=== PATIENT | male | born 1935 | race Caucasian/White ===

== ENCOUNTER → 2016-07-11 | Outpatient (CLI) | payer OTHER, MEDICARE ==
--- NOTE | 2016-07-11 13:43 | CT ---
CT Chest, Abdomen And Pelvis Without Contrast Indication: Elevated creatinine, diarrhea, constipation, right upper back pain, nonsmoker with no can cer history.. Comparison: CT chest April 04, 2014, CT abdomen and pelvis May 01, 2013. Technique: Axial unenhanced CT imaging was performed through the chest, abdomen and pelvis without c ontrast. Dose reduction techniques were utilized. Findings: CHEST: There is mild peribronchial thickening with scattered atelectasis. Heart size is normal. Dual lead right subclavian pacemaker leads are in the right atrium and ventricle. Mitral annular calcifica tions are present. Coronary artery atherosclerosis is noted in the LAD. There is stable mild aneurysm al dilatation of the ascending aorta, measuring 4.2 cm, with moderate aortic atherosclerosis. No path ologically enlarged lymph nodes are identified. Degenerative change is present in the spine. Abdomen: The imaged noncontrast portions of the liver, spleen, gallbladder, pancreas and adrenal gl ands are unremarkable. A 2-mm nonobstructing stone is present in the inferior left kidney. Lobulated renal contour is grossly stable with scattered areas of cortical thinning. Moderate stool is present in the proximal colon. The colon and small bowel are normal caliber. The ap pendix is not visible. There is no free air or fluid. A tiny fat-containing periumbilical hernia is p resent. Moderate atherosclerosis is present in a normal caliber aorta. Severe multilevel degenerative change in the lumbar spine is slightly increased since the comparison, with multilevel mild to moderate spinal canal narrowing. Pelvis: No bladder or distal ureteral calcifications are identified. Mild bladder wall thickening m ay be related to underdistention or bladder outlet obstruction. The prostate is enlarged, measuring 5 .8 cm. No pathologically enlarged lymph nodes are identified. A small fat-containing left inguinal he rnia is stable. No aggressive osseous lesions are present. Impression: 1. No acute findings in the chest, abdomen or pelvis. 2. Mild stool in the proximal colon. 3. Nonobstructing left nephrolithiasis. 4. 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 5. Prostatic hypertrophy. 6. Additional findings as above. Findings discussed with Dr. Femi Blackburn today at 1333 hours. Attention: This CT examination is specifically designed to evaluate patients who are clinically susp ected of having acute obstructive uropathy. This examination does not use radiographic contrast, and as such, provides only a limited evaluation of the abdomen, pelvis and retroperitoneum. If there i s further clinical suspicion for pathological conditions other than obstructive uropathy, a complete CT evaluation of the abdomen and pelvis utilizing intravenous, oral, and rectal contrast should be co nsidered.
== END ==
LOC: FIMAGING 12:10
PROVIDERS: ATTEND Family Medicine Sports Medicine
DX: R63.4 Abnormal weight loss (principal); R89.9 Unspecified abnormal finding in specimens from other organs, systems and tissues; N20.0 Calculus of kidney; N40.0 Benign prostatic hyperplasia without lower urinary tract symptoms; M51.36 Other intervertebral disc degeneration, lumbar region

== ENCOUNTER 2016-07-13 15:12 | Inpatient (IN) | payer OTHER, MEDICARE ==
--- NOTE | 2016-07-13 15:25 | EDPHY ---
H & P Stated Complaint: diarrhea for 3 wks kidney/back pain Time Seen by Provider: 07/13/16 15:24 HPI/ROS: CHIEF COMPLAINT: Dyspnea, diarrhea, generalized weakness HISTORY OF PRESENT ILLNESS: The patient presents to the ED for evaluation of 2- 3 days of dyspnea, 3-4 weeks of intermittent diarrhea and increasing generalized weakness. The patient does have a history of a pacemaker. He is not anticoagulated. He has no history of coronary artery disease but does have a history of obstructive sleep apnea. The patient denies recent antibiotic use. The patient denies acute pain. He has no complaints of dysuria or cough. He describes his dyspnea is moderate in nature. He reportedly has had a 20 lb weight loss over the past month. The patient did see his primary care provider Dr. Femi Blackburn 2 days ago. The patient did have some laboratory studies which demonstrated a slightly elevated creatinine of 2.1. The patient also had a CT scan of his chest abdomen pelvis without contrast which were unremarkable. REVIEW OF SYSTEMS: A comprehensive 10 point review of systems is otherwise negative aside from elements mentioned in the history of present illness. Source: Patient Exam Limitations: No limitations - Personal History Current Tetanus/Diphtheria Vaccine: Yes Current Tetanus Diphtheria and Acellular Pertussis (TDAP): Yes - Medical/Surgical History Hx Asthma: No Hx Chronic Respiratory Disease: Yes Hx Diabetes: No Hx Cardiac Disease: Yes Hx Renal Disease: No Hx Cirrhosis: No Hx Alcoholism: No Hx HIV/AIDS: No Hx Splenectomy or Spleen Trauma: No Other PMH: HTN, hypoxemia, aortic valve disorder, mitral valve regurgitation, Mobitz 1 & 2 heart block. surg- pacemaker 03/31,back and neck testicle - Social History Smoking Status: Never smoked - Physical Exam Exam: General Appearance: Elderly male, obese, slightly deconditioned Eyes: Pupils equal and round no pallor or injection ENT, Mouth: Mucous membranes moist Respiratory: There are no retractions, lungs are clear to auscultation Cardiovascular: Regular rate and rhythm Gastrointestinal: Abdomen is soft and nontender, no masses, bowel sounds normal Neurological: A&O, normal motor function, normal sensory exam, normal cranial nerves Skin: Warm and dry, no rashes Musculoskeletal: Neck is supple nontender Extremities: Bilateral lower extremity edema and swelling Constitutional: Initial Vital Signs Temperature (C) 36.1 C 07/13/16 15:14 Heart Rate 58 L 07/13/16 15:14 Respiratory Rate 16 07/13/16 15:14 Blood Pressure 71/50 L 07/13/16 15:14 O2 Sat (%) 96 07/13/16 15:14 O2 Delivery Mode Nasal Cannula O2 (L/minute) 2 Allergies/Adverse Reactions: acetaminophen [From Percocet] Allergy (Verified 12/20/15 12:23) oxycodone Allergy (Verified 12/20/15 12:23) oxycodone HCl [From Percocet] Allergy (Verified 12/20/15 12:23) Home Medications: Medication Instructions Recorded Ascorbic Acid [Vitamin C 500 mg 1,000 mg PO HS 02/17/14 (*)] Aspirin [Aspirin 81mg (*)] 81 mg PO HS 02/17/14 Fluticasone Nasal [Flonase Nasal 1 sprays NASAL BID PRN 02/17/14 [place]] Glucosamine Sulfate 2Kcl 1,000 mg PO BID 02/17/14 [Glucosamine] Guaifenesin/Codeine Phosphate 5 ml PO Q4 PRN 02/17/14 [Codeine-Guaifen 10-100 mg/5 ml] Herbals/Supplements -Info Only 1 ea PO DAILY 02/17/14 Hydrochlorothiazide [HCTZ (*)] 25 mg PO DAILY 02/17/14 Irbesartan/Hydrochlorothiazide 1 each PO HS 02/17/14 [Avalide 300-12.5 mg Tablet] Methimazole [Tapazole 5MG (*)] 5 mg PO DAILY 02/17/14 Multivitamins [Multivitamin (*)] 1 each PO HS 02/17/14 NIFEdipine ER [Adalat CC 60 mg (*)] 60 mg PO DAILY 02/17/14 Tadalafil [Cialis] 5 mg PO HS PRN 02/17/14 Hydrocodone/Acetaminophen [Vicodin 1 each PO Q4-6PRN PRN #14 tablet 02/18/14 5-300 mg Tablet] Advair 250/50 (RX) 05/30/14 Albuterol [Proventil Inhaler] 2 puffs IH Q4 PRN #1 mdi 05/30/14 Amoxicillin/Clavulanate Pot 05/30/14 [Augmentin 875 MG TAB (RX)] Foradil Aerolization 05/30/14 HYDROcodone/CPM TUSSIONEX 5 ml PO Q12 #240 ml 05/30/14 [Tussionex Suspension] Lasix 40 MG (RX) 05/30/14 Potassium Chloride [K-Tab ER] 05/30/14 Prilosec 05/30/14 AZITHROMYCIN [Z-PACK] 250 mg PO DAILY #6 tab 12/20/15 HYDROcodone/CPM TUSSIONEX 5 ml PO Q12 #240 ml 12/20/15 [Tussionex Suspension] Hydrocodone/APAP 5/325 [[place] 1 tab PO Q6H PRN #10 tab 12/20/15 5/325 (RX)] Medical Decision Making - Diagnostics EKG Interpretation: EKG: Complete interpretation has been separately recorded in the [facility] archive. Summary impression: Atrial paced rhythm, left bundle branch block Imaging: Chest, PA and Lateral Findings: Lungs are clear, without infiltrate or consolidation. Heart size and pulmonary vascularity are normal. A left chest wall pacer device with bipolar pacer leads remains in place. There is chronic atherosclerotic calcification of the thoracic aorta. There is no adenopathy or mass lesion. There is no pleural effusion or pneumothorax. A prominent kyphosis centered at the thoracolumbar junction associated with calcification of the T10-T11 disk space and old mild compressions of T10, T11, T12 and L1 are stable. No new compressions have developed. Impression: Nothing acute identified. ED Course/Re-evaluation: I reviewed the patient's past medical records including his CT scan results from several days ago and his laboratory testing which demonstrated a creatinine of 2.1. In the emergency department today the patient's creatinine is elevated at 3.2. He had an IV established. He received 2 L of normal saline. Patient's bladder scan demonstrates a urinary volume of 100 mL. The patient presents to the ED with malaise, dyspnea and acute renal failure in the setting of 3 days of diarrhea. The patient did initially have a low blood pressure which responded to IV fluid rehydration. The patient is afebrile. There is no clinical evidence of an infection. The patient does present to the ED with acute renal failure without hyperkalemia. Patient did receive IV fluid rehydration in the ED. He had improvement of his blood pressure. I reviewed the patient's medications in the [facility] system. The patient is currently on hydrochlorothiazide, Lasix and Avalide. Consultation was made with Dr. Miguel Pierce from the hospitalist service. The patient will need to be admitted for further treatment of his acute renal failure. Differential Diagnosis: Differential diagnosis considered includes acute renal failure, hyperkalemia, congestive heart failure, metabolic abnormality, pneumonia, arrhythmia - Data Points Laboratory Results: Laboratory Results 07/13/16 15:36 07/13/16 15:36 07/13/16 15:36 WBC 9.88 H 10^3/uL (3.80-9.50) RBC 4.94 10^6/uL (4.40-6.38) Hgb 15.1 g/dL (13.7-17.5) Hct 43.5 % (40.0-51.0) MCV 88.1 fL (81.5-99.8) MCH 30.6 pg (27.9-34.1) MCHC 34.7 g/dL (32.4-36.7) RDW 11.9 % (11.5-15.2) Plt Count 212 10^3/uL (150-400) MPV 10.6 fL (8.7-11.7) Neut % (Auto) 73.4 % (39.3-74.2) Lymph % (Auto) 17.3 % (15.0-45.0) [place] % (Auto) 7.6 % (4.5-13.0) Eos % (Auto) 0.8 % (0.6-7.6) Baso % (Auto) 0.3 % (0.3-1.7) Nucleat RBC Rel Count 0.0 % (0.0-0.2) Absolute Neuts (auto) 7.25 H 10^3/uL (1.70-6.50) Absolute Lymphs (auto) 1.71 10^3/uL (1.00-3.00) Absolute Monos (auto) 0.75 10^3/uL (0.30-0.80) Absolute Eos (auto) 0.08 10^3/uL (0.03-0.40) Absolute Basos (auto) 0.03 10^3/uL (0.02-0.10) Absolute Nucleated RBC 0.00 10^3/uL (0-0.01) Immature Gran % 0.6 % (0.0-1.1) Immature Gran # 0.06 10^3/uL (0.00-0.10) PT 13.8 SEC (12.0-15.0) INR 1.07 (0.83-1.16) D-Dimer 0.43 ug/mLFEU (0.00-0.50) Sodium 137 mEq/L (134-144) Potassium 4.1 mEq/L (3.5-5.2) Chloride 97 mEq/L (97-110) Carbon Dioxide 24 mEq/l (22-31) Anion Gap 16 mEq/L (8-16) BUN 75 H mg/dL (7-23) Creatinine 3.2 H mg/dL (0.7-1.3) Estimated GFR 19 Glucose 113 H mg/dL (70-100) Calcium 10.7 H mg/dL (8.5-10.4) Phosphorus 4.1 mg/dL (2.5-4.5) Troponin I 0.021 ng/mL (0-0.034) NT-Pro-B Natriuret Pep 711 H pg/mL (0-450) Medications Given: Discontinued Medications Sodium Chloride (Ns) 1,000 mls @ 0 mls/hr IV ONCE ONE PRN Reason: [place] Stop: 07/13/16 15:32 Last Admin: 07/13/16 15:40 Dose: 1,000 mls Departure - Departure Disposition: [facility] Inpatient Acute Clinical Impression: Acute renal failure, Hypovolemia Condition: Fair
[2016-07-13] MEDS ORDERED: NS 1,000 ML IV ONE (15:31)
--- NOTE | 2016-07-13 15:35 | CPEKG ---
Heart Rate: 67 RR Interval: 896 QRSD Interval: 164 QT Interval: 464 QTC Interval: 490 P [place]: 0 QRS [place]: -22 T Wave [place]: 164 EKG Severity - ABNORMAL ECG - EKG Impression: ATRIAL-SENSED VENTRICULAR-PACED COMPLEXES EKG Impression: LEFT BUNDLE BRANCH BLOCK Electronically Signed By: Jadiel Moss 13-Jul-2016 15:45:59
[2016-07-13 15:41] LABS: % IMMATURE GRANULYOCYTES 0.6 % (0.0-1.1); ABSOLUTE IMMATURE GRANULOCYTES 0.06 10^3/uL (0.00-0.10); ADD DIFF? NO; ADD MORPH? NO; ADD SCAN? NO; ATYPICAL LYMPHOCYTE FLAG 20 (0-99); FRAGMENT RBC FLAG 10 (0-99); HEMATOCRIT 43.5 % (40.0-51.0); HEMOGLOBIN 15.1 g/dL (13.7-17.5); LEFT SHIFT FLG 0 (0-99); LIPEMIA HEMOLYSIS FLAG 90 (0-99); MEAN CELL HEMOGLOBIN 30.6 pg (27.9-34.1); MEAN CELL HEMOGLOBIN CONCENTR. 34.7 g/dL (32.4-36.7); MEAN CELL VOLUME 88.1 fL (81.5-99.8); MEAN PLATELET VOLUME 10.6 fL (8.7-11.7); PLATELET CLUMPS FLAG 0 (0-99); PLATELET COUNT 212 10^3/uL (150-400); RED BLOOD CELL COUNT 4.94 10^6/uL (4.40-6.38); RED CELL DISTRIBUTION WIDTH 11.9 % (11.5-15.2)
[2016-07-13 15:49] LABS: INR 1.07 (0.83-1.16); PROTIME(PATIENT) 13.8 SEC (12.0-15.0)
[2016-07-13 15:54] LABS: ANION GAP 16 mEq/L (8-16); CALCIUM 10.7 mg/dL (8.5-10.4); CARBON DIOXIDE 24 mEq/l (22-31); CHLORIDE 97 mEq/L (97-110); CREATININE 3.2 mg/dL (0.7-1.3); GLOMERULAR FILTRATION RATE 19; GLUCOSE 113 mg/dL (70-100); POTASSIUM 4.1 mEq/L (3.5-5.2); SODIUM 137 mEq/L (134-144)
[2016-07-13 16:05] LABS: TROPONIN I 0.021 ng/mL (0-0.034)
--- NOTE | 2016-07-13 16:26 | DX ---
Chest, PA and Lateral History: Dyspnea Comparison: December 20, 2015 Findings: Lungs are clear, without infiltrate or consolidation. Heart size and pulmonary vascularity are normal. A left chest wall pacer device with bipolar pacer leads remains in place. There is chroni c atherosclerotic calcification of the thoracic aorta. There is no adenopathy or mass lesion. There i s no pleural effusion or pneumothorax. A prominent kyphosis centered at the thoracolumbar junction as sociated with calcification of the T10-T11 disk space and old mild compressions of T10, T11, T12 and L1 are stable. No new compressions have developed. Impression: Nothing acute identified.
[2016-07-13] MEDS ORDERED: ONDANSETRON 4 MG/2 ML VIAL IVP PRN (18:29)
[2016-07-13] MEDS ORDERED: ONDANSETRON HCL 4 MG PO PRN (18:35)
--- NOTE | 2016-07-13 18:42 | PDGENHP ---
History and Physical - Chief Complaint Acute shortness of breath - History of Present Illness PCP: Dr. Blackburn Apn: Dr. Payne HPI: 81-year-old male presenting with acute shortness of breath characterized as difficulty breathing and getting winded with any level of activity, associated with generalized weakness, general malaise, diarrhea, anorexia, unintentional weight loss. Patient reports that his onset of symptoms approximately 3-4 weeks ago and duration has been intermittent but worsening thereafter. His oral intake of solids and liquids has been poor secondary to poor appetite, and this has resulted in an unintentional weight loss. Was seen by his primary care provider to further evaluate and his creatinine level was around 2.5. He underwent CTs without contrast of the chest abdomen pelvis and he has demonstrated stool in the colon, nonobstructing left-sided nephrolithiasis, BPH, no evidence of pulmonary abnormality. His shortness of breath is exacerbated by any level of activity, notably getting up out of the supine position and ambulating across the room. He reports that he this level physical activity has resulted in significant shortness of breath. Denies any overt chest pain, denies any oliguria, denies any overt vomiting. His diarrhea has been characterized as nonbloody, high volume watery stool, and it appears to be alleviated by reducing his oral intake of solids. During this interval, the patient has been adherent to all of his home medications. History Information - Allergies/Home Medication List Allergies/Adverse Reactions: acetaminophen [From Percocet] Allergy (Verified 12/20/15 12:23) oxycodone Allergy (Verified 12/20/15 12:23) oxycodone HCl [From Percocet] Allergy (Verified 12/20/15 12:23) Home Medications: Ascorbic Acid [Vitamin C 500 mg (*)] 1,000 mg PO HS 02/17/14 [Last Taken ] Aspirin [Aspirin 81mg (*)] 81 mg PO HS 02/17/14 [Last Taken 07/13/16 01:00] Glucosamine Sulfate 2Kcl [Glucosamine] 1,000 mg PO BID 02/17/14 [Last Taken ] Herbals/Supplements -Info Only 1 ea PO DAILY 02/17/14 [Last Taken 02/17/14] Hydrochlorothiazide [HCTZ (*)] 25 mg PO DAILY 02/17/14 [Last Taken 07/13/16] Irbesartan/Hydrochlorothiazide [Avalide 300-12.5 mg Tablet] 1 each PO HS [Last Taken 07/12/16] Methimazole [Tapazole 5MG (*)] 5 mg PO DAILY 02/17/14 [Last Taken 07/13/16] Multivitamins [Multivitamin (*)] 1 each PO HS 02/17/14 [Last Taken 07/12/16] Tadalafil [Cialis] 5 mg PO HS PRN 02/17/14 [Last Taken Unknown] Azelastine HCl [Azelastine HCl] 1 spray EACHNARE DAILY 07/13/16 [Last Taken ] Fluticasone/Salmeter 250/50Mcg [Advair 250/50 (*)] 1 puffs IH BID 07/13/16 [ Last Taken 06/29/16] Furosemide [Furosemide] 40 mg PO DAILY 07/13/16 [Last Taken 07/13/16] Montelukast Sodium [Montelukast Sodium] 10 mg PO DAILY 07/13/16 [Last Taken ] Ondansetron HCl [Ondansetron HCl] 4 mg PO DAILY PRN 07/13/16 [Last Taken ] Potassium Chloride [Klor-Con M20] 20 meq PO BID 07/13/16 [Last Taken 07/13/16 08 :00] TRAMADOL HCL [TRAMADOL HCL] 100 mg PO DAILY 07/13/16 [Last Taken 07/13/16] I have personally reviewed and updated: family history, medical history, social history, surgical history - Past Medical History hypertension Additional medical history: Chronic lower back pain on tramadol. Moderate aortic stenosis. Nocturnal hypoxia. 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 Review of Systems ROS: 10pt was reviewed & negative except for what was stated in HPI & below Constitutional: Reports: malaise, weakness, weight loss Respiratory: Reports: shortness of breath Physical Exam Temp Pulse Resp BP Pulse Ox 36.4 C 81 18 83/51 L 96 07/13/16 18:21 07/13/16 18:21 07/13/16 18:21 07/13/16 18:21 07/13/16 17:21 O2 (L/minute) 2 Constitutional: no apparent distress, not in pain, obese, uncomfortable Eyes: PERRL, anicteric sclera, EOMI Ears, Nose, Mouth, Throat: hearing normal, ears appear normal, other ( tacky mucous membranes) Cardiovascular: systolic murmur ( 2/6 systolic murmur at the sternum), edema ( trace bilateral lower extremity), No irregularly irregular, No JVD, No tachycardia Respiratory: no respiratory distress, no rales or rhonchi, clear to auscultation Gastrointestinal: normoactive bowel sounds, soft, non-tender abdomen, no palpable masses Genitourinary: no bladder fullness, no bladder tenderness, other ( no CVA tenderness to palpation) Skin: warm, normal color, no rashes or abrasions, no fluctuance, no induration, No mottled Neurologic: AAOx3, sensation intact bilaterally, No weakness Psychiatric: interacting appropriately, not anxious, not encephalopathic, thought process linear Lab Data & Imaging Review 07/13/16 15:36 07/13/16 15:36 WBC 9.88 10^3/uL (3.80-9.50) H 07/13/16 15:36 RBC 4.94 10^6/uL (4.40-6.38) 07/13/16 15:36 Hgb 15.1 g/dL (13.7-17.5) 07/13/16 15:36 Hct 43.5 % (40.0-51.0) 07/13/16 15:36 MCV 88.1 fL (81.5-99.8) 07/13/16 15:36 MCH 30.6 pg (27.9-34.1) 07/13/16 15:36 MCHC 34.7 g/dL (32.4-36.7) 07/13/16 15:36 RDW 11.9 % (11.5-15.2) 07/13/16 15:36 Plt Count 212 10^3/uL (150-400) 07/13/16 15:36 MPV 10.6 fL (8.7-11.7) 07/13/16 15:36 Neut % (Auto) 73.4 % (39.3-74.2) 07/13/16 15:36 Lymph % (Auto) 17.3 % (15.0-45.0) 07/13/16 15:36 [place] % (Auto) 7.6 % (4.5-13.0) 07/13/16 15:36 Eos % (Auto) 0.8 % (0.6-7.6) 07/13/16 15:36 Baso % (Auto) 0.3 % (0.3-1.7) 07/13/16 15:36 Nucleat RBC Rel Count 0.0 % (0.0-0.2) 07/13/16 15:36 Absolute Neuts (auto) 7.25 10^3/uL (1.70-6.50) H 07/13/16 15:36 Absolute Lymphs (auto) 1.71 10^3/uL (1.00-3.00) 07/13/16 15:36 Absolute Monos (auto) 0.75 10^3/uL (0.30-0.80) 07/13/16 15:36 Absolute Eos (auto) 0.08 10^3/uL (0.03-0.40) 07/13/16 15:36 Absolute Basos (auto) 0.03 10^3/uL (0.02-0.10) 07/13/16 15:36 Absolute Nucleated RBC 0.00 10^3/uL (0-0.01) 07/13/16 15:36 Immature Gran % 0.6 % (0.0-1.1) 07/13/16 15:36 Immature Gran # 0.06 10^3/uL (0.00-0.10) 07/13/16 15:36 PT 13.8 SEC (12.0-15.0) 07/13/16 15:36 INR 1.07 (0.83-1.16) 07/13/16 15:36 D-Dimer 0.43 ug/mLFEU (0.00-0.50) 07/13/16 15:36 Sodium 137 mEq/L (134-144) 07/13/16 15:36 Potassium 4.1 mEq/L (3.5-5.2) 07/13/16 15:36 Chloride 97 mEq/L (97-110) 07/13/16 15:36 Carbon Dioxide 24 mEq/l (22-31) 07/13/16 15:36 Anion Gap 16 mEq/L (8-16) 07/13/16 15:36 BUN 75 mg/dL (7-23) H 07/13/16 15:36 Creatinine 3.2 mg/dL (0.7-1.3) H 07/13/16 15:36 Estimated GFR 19 07/13/16 15:36 Glucose 113 mg/dL (70-100) H 07/13/16 15:36 Calcium 10.7 mg/dL (8.5-10.4) H 07/13/16 15:36 Phosphorus 4.1 mg/dL (2.5-4.5) 07/13/16 15:36 Troponin I 0.021 ng/mL (0-0.034) 07/13/16 15:36 NT-Pro-B Natriuret Pep 711 pg/mL (0-450) H 07/13/16 15:36 Visualized and Interpreted Chest x-ray results: Yes Chest X-Ray results: no infiltrate Visualized and Interpreted EKG results: Yes EKG Interpretation: Positive for: other ( a sensed, V paced, left bundle branch block) Assessment & Plan Assessment: 81-year-old male presents with acute shortness of breath in the setting of acute kidney injury Plan: 1. Acute kidney injury. Acute, new problem this provider, further workup indicated. Non-oliguric, progressively rising serum creatinine level over the past week, most likely resulting in uremia and at least contributing to patient' s generalized malaise. -unclear cause, suspect that there is at least component of hypovolemia given his poor oral intake and diarrhea, exacerbated by ongoing use of ARB+lasix+HCTZ -send fractional excretion of urea -send urinalysis, send spot urine protein -provide IV normal saline at 150 cc an hour, monitor strict I&Os, repeat serum creatinine level tomorrow a.m. -get renal ultrasound to rule out obstruction -if patient's serum creatinine level is worsening tomorrow or not appreciably improved, then consult with Nephrology 2. Shortness of breath. Acute, new problem this provider, further workup indicated. Potential etiologies include uremia versus myocardial ischemia versus cardiomyopathy -get echocardiogram -get Lexiscan stress test -reviewed outside records including nuclear medicine stress test from 2013 demonstrating no previous infarct or ischemia -reviewed outside records including 03/17/2014 discharge summary by kenroy Gonzalez reporting a patient second-degree AV block requiring permanent pacemaker -hold on cardiology consultation until the above data has been gathered and consult if there are abnormalities -D-dimer rule out pulmonary embolism -no evidence of focal airspace disease on chest x-ray or recent chest CT -get orthostatic vital signs given that hypotension may be contributing to shortness of breath 3. Hypotension. Acute, most likely secondary to hypovolemia in the setting of poor oral intake and diarrhea -monitor patient's stool output -discussed with Dr. Jadiel Moss in the emergency department, he reports he has provided the patient with IV fluids, continued 150 cc an hour -hold patient's antihypertensive medications -if worsening, send lactic acid level 4. Chronic lower back pain. Cont tramadol Diet. Renal Prophylaxis. High risk patient, heparin subcu Code. Full Disposition. Anticipated discharge is uncertain this time, anticipated length stay is greater than 48 hours warranting inpatient admission status for acute kidney injury in the setting of high risk comorbid acute shortness of breath and hypotension requiring further workup and placing the patient at high risk of worsening morbidity and potentially mortality.
--- NOTE | 2016-07-13 19:51 | US ---
Renal Sonogram Clinical Indications: Worsening renal function in an 81-year-old male; evaluate for obstruction. Findings: The right kidney measures 10.2 x 5.0 x 5.6 cm. Renal cortical thickness is estimated at 1. 0 cm. No masses are identified, and there is no hydronephrosis. There are no pararenal lesions. The left kidney measures 10.0 x 4.6 x 4.0 cm. Renal cortical thickness is estimated at 1.5 cm. No mas ses are identified, and there is no hydronephrosis. There are no pararenal lesions. The bladder contour is normal. Bilateral ureteral jets are identified. The prevoid bladder volume is estimated at 37 mL. The patient was unable to void so a post void volum e could not be calculated. The prostate is enlarged measuring 6.2 x 4.8 x 5.0 cm. Impression: 1. Negative for hydronephrosis. 2. Prostatic enlargement. 3. See above report for additional findings.
[2016-07-13] MEDS: NS 1,000 ML IV SCH (20:02)
[2016-07-13] MEDS ORDERED: ALBUTEROL 60 PUFFS/8 GM MDI IH PRN (20:49)
[2016-07-13] MEDS: MULTIVITAMINS 1 EACH TAB PO SCH (20:57)
[2016-07-13] MEDS: GLUCOSAMINE SULF 500 MG CAP PO SCH (20:57)
[2016-07-13] MEDS: ASCORBIC ACID 500 MG TAB PO SCH (20:57)
[2016-07-13] MEDS: ASPIRIN 81 MG CHEWABLE TAB PO SCH (20:57)
[2016-07-13] MEDS: HEPARIN 5,000 UNIT/0.5 ML SYR SC SCH (21:03)
[2016-07-13] MEDS: FLUTICASONE/SALMETER 250/50MCG DISKUS IH SCH (21:16)
[2016-07-13 21:29] LABS: COLOR YELLOW; LEUKOCYTE ESTERASE,URINE NEGATIVE (NEGATIVE); NITRITE,URINE NEGATIVE (NEGATIVE)
[2016-07-14 04:56] LABS: % IMMATURE GRANULYOCYTES 0.5 % (0.0-1.1); ABSOLUTE IMMATURE GRANULOCYTES 0.04 10^3/uL (0.00-0.10); ADD DIFF? NO; ADD MORPH? NO; ADD SCAN? NO; ATYPICAL LYMPHOCYTE FLAG 0 (0-99); FRAGMENT RBC FLAG 0 (0-99); HEMATOCRIT 40.9 % (40.0-51.0); HEMOGLOBIN 14.2 g/dL (13.7-17.5); LEFT SHIFT FLG 0 (0-99); LIPEMIA HEMOLYSIS FLAG 90 (0-99); MEAN CELL HEMOGLOBIN 31.3 pg (27.9-34.1); MEAN CELL HEMOGLOBIN CONCENTR. 34.7 g/dL (32.4-36.7); MEAN CELL VOLUME 90.1 fL (81.5-99.8); MEAN PLATELET VOLUME 10.6 fL (8.7-11.7); PLATELET CLUMPS FLAG 0 (0-99); PLATELET COUNT 154 10^3/uL (150-400); RED BLOOD CELL COUNT 4.54 10^6/uL (4.40-6.38); RED CELL DISTRIBUTION WIDTH 11.9 % (11.5-15.2)
[2016-07-14 05:05] LABS: ALANINE AMINOTRANSFERASE 33 IU/L (21-72); ALBUMIN 3.7 g/dL (3.5-5.0); ALKALINE PHOSPHATASE 75 IU/L (38-126); ANION GAP 10 mEq/L (8-16); ASPARTATE AMINOTRANSFERASE 27 IU/L (17-59); BILIRUBIN,TOTAL 1.6 mg/dL (0.1-1.4); CALCIUM 10.1 mg/dL (8.5-10.4); CARBON DIOXIDE 24 mEq/l (22-31); CHLORIDE 104 mEq/L (97-110); CREATININE 2.6 mg/dL (0.7-1.3); GLOMERULAR FILTRATION RATE 24; GLUCOSE 96 mg/dL (70-100); MAGNESIUM 2.2 mg/dL (1.6-2.3); POTASSIUM 4.9 mEq/L (3.5-5.2); SODIUM 138 mEq/L (134-144); TOTAL PROTEIN 6.3 g/dL (6.3-8.2)
[2016-07-14 05:14] LABS: TROPONIN I 0.019 ng/mL (0-0.034)
[2016-07-14] MEDS: HEPARIN 5,000 UNIT/0.5 ML SYR SC SCH ×3 (06:04→22:14)
[2016-07-14] MEDS: traMADol 50 MG TAB PO SCH ×2 (08:19→14:42)
[2016-07-14] MEDS: GLUCOSAMINE SULF 500 MG CAP PO SCH ×2 (08:19→22:14)
[2016-07-14] MEDS: AZELASTINE NASAL MDI EACHNARE SCH (08:21)
[2016-07-14] MEDS ORDERED: PNEUMOC 13-VAL CONJ-DIP CRM/PF 0.5 ML SYR IM ONE (08:30)
[2016-07-14] MEDS ORDERED: Herbals/Supplements -Info Only PO SCH (09:00)
[2016-07-14] MEDS ORDERED: METHIMAZOLE 5 MG TAB PO SCH (09:00)
[2016-07-14] MEDS: NS 1,000 ML IV SCH (10:35)
--- NOTE | 2016-07-14 10:44 | ECHO ---
[id number] + + [address] : : [place] [address] : : [phone] + + Adult Echocardiographic Report + ------+ :Name: MELLO FOUNTAINjonnathanmilton Date: 07/14/2016 08:24 AM : : Hospital Admission Number: [id number] Locatio n: 218: :: 1935 Gender: Male Height: 73 in : :Age: 81 yrs Race: WH,White Weight: 201 lb : :Reason For Study: Eval for worsening EF : : BSA: 2.2 meters 2 : + ------+ MMode/2D Measurements & Calculations IVSd: 1.5 cm LVIDd: 3.6 cm FS: 33.4 % LVOT diam: 1.9 cm LVPWd: 1.4 cm LVIDs: 2.4 cm EDV(Teich): LVOT area: 56.0 ml 2.9 cm2 ESV(Teich): 20.7 ml EF(Teich): 63.0 % LVLd ap4: 9.2 cm SV(MOD-sp4): EDV(MOD-sp4): 101.0 ml 147.0 ml LVLs ap4: 7.8 cm ESV(MOD-sp4): 46.0 ml EF(MOD-sp4): 68.7 % Normal Measurement Values: + + :LVIDd (3.5-5.7cm) IVSd (0.6-1.1cm) LVPWd (0.6-1.1cm) Aortic Root (2.0-3.7cm)Left Atrium (1.5-4.0cm): :LV Vol(d) (76-115ml) LV Vol(s) (29-48ml) Ejec Fraction (50-65%)PV Aaron (0.6- 1.2m/s) TV Aaron (0.4-1.0m/s) : :MV E Aaron (0.8-1.0m/s)MV A Aaron (0.3-1.0m/s)LVOT Aaron (0.7-1.2m/s) Asc Ao Aaron ( 0.9-1.8m/s) : + + Doppler Measurements & Calculations MV E max aaron: MV V2 max: Ao V2 max: AI max aaron: 94.3 cm/sec 152.2 cm/sec 237.8 cm/sec 304.1 cm/sec MV A max aaron: MV max PG: Ao max PG: AI max P.7 cm/sec 9.3 mmHg 22.6 mmHg 37.0 mmHg MV E/A: 0.67 MV V2 mean: Ao mean PG: AI dec slope: MV dec time: 94.0 cm/sec 17.2 mmHg 71.6 cm/sec2 0.36 sec MV mean PG: Ao V2 mean: AI P1/2t: 1245 msec 3.9 mmHg 197.3 cm/sec MV V2 VTI: 51.3 cmAo V2 VTI: 57.0 cm MVA(VTI): 1.8 cm2 DELANO(I,D): 1.7 cm2 LV V1 mean PG: SV(LVOT): 94.5 ml PA V2 max: TR max aaron: 4.1 mmHg 100.8 cm/sec 339.3 cm/sec LV V1 mean: PA max PG: TR max P.0 cm/sec 4.1 mmHg 46.1 mmHg LV V1 VTI: 32.4 cm Left Ventricle The left ventricle is normal in size. There is mild to moderate concentric left ventricular hypertrophy. Proximal septal thickening is noted. Ejection Fraction = 65-70%. There is Doppler evidence for diastolic dysfunction. Septal motion is consistent with conduction abnormality. Right Ventricle The right ventricle is normal in size and function. There is a pacemaker lead in the right ventricle. Atria The left atrial size is normal. Right atrial size is normal. Mitral Valve There is mild to moderate mitral annular calcification. There is mild mitral stenosis. There is trace to mild mitral regurgitation. Tricuspid Valve The tricuspid valve is normal in structure and function. There is no tricuspid stenosis. There is moderate tricuspid regurgitation. Estimated PA systolic pressure is 46 mmHg plus RA pressure, consistent with moderate PHTN. Aortic Valve Mild-Moderate Aortic Valve Calcification. Mild valvular aortic stenosis. Mild to moderate aortic regurgitation. Pulmonic Valve The pulmonic valve is not well visualized. There is no pulmonic valvular stenosis. There is no pulmonic valvular regurgitation. Great Vessels The aortic root is normal size. Pericardium/Pleural There is no pericardial effusion. There is a fat pad seen. Conclusion A complete two-dimensional transthoracic echocardiogram was performed (2D, M-mode, Doppler and color flow Doppler). The study was technically difficult. The left ventricle is normal in size. Proximal septal thickening is noted. There is mild to moderate concentric left ventricular hypertrophy. Ejection Fraction = 65-70%. There is Doppler evidence for diastolic dysfunction. Septal motion is consistent with conduction abnormality. The right ventricle is normal in size and function. There is a pacemaker lead in the right ventricle. There is mild to moderate mitral annular calcification. There is trace to mild mitral regurgitation. Mild mitral stenosis There is moderate tricuspid regurgitation. Estimated PA systolic pressure is 46 mmHg plus RA pressure, consistent with moderate PHTN Mild-Moderate Aortic Valve Calcification Mild valvular aortic stenosis. Mild to moderate aortic regurgitation. The pulmonic valve is not well visualized. Compared with 11/21/2012, valvular disease has progressed and PHTN now present Final Reading Physician: Dr Lucero Torres electronically signed on 07/14/2016 10:42 AM Ordering Physician: Lavon Pierce Performed By: Prerna Armstrong
[2016-07-14 11:33] LABS: T3 (TRIIODOTHYRONINE) TOTAL 1.77 ng/mL (0.970-1.690)
[2016-07-14] MEDS: FLUTICASONE/SALMETER 250/50MCG DISKUS IH SCH ×2 (12:27→20:50)
[2016-07-14 13:21] LABS: RANDOM URINE PROTEIN 9 mg/dL
[2016-07-14] MEDS ORDERED: REGADENOSON 0.4 MG/5 ML SYR IVP ONE (13:32)
[2016-07-14] MEDS: MONTELUKAST SODIUM 10 MG TAB PO SCH (14:50)
--- NOTE | 2016-07-14 15:29 | NM ---
Nuclear Medicine Stress and Rest Sestamibi Myocardial Scan 12:46 PM Indication: Dyspnea. Hypertension. Left bundle branch block. Technique: 1. Resting study was performed by injecting 11 mCi of technetium 99m sestamibi (Cardiolite) intraven ously, and SPECT myocardial images were acquired. 2. Stress study was performed by injecting 25.7 mCi of technetium 99m sestamibi following Lexiscan stress. 3. Gated SPECT imaging could not be performed due to abnormal heart rate. Comparison: Stress test dated March 31, 2014. Findings: The raw data reveals mild subdiaphragmatic balance solid organ uptake. SPECT imaging reveal s a large fixed defect involving the inferior wall, inferior septum and inferior aspect of the left v entricular free wall. Gated imaging could not be performed due to abnormal rhythm. Impression: 1. Large age-indeterminate myocardial infarction involving the inferior wall and inferior lateral wal l. 2. Defect involving the inferior septum may be related to patient's left bundle branch block. 3. No evidence of reversible ischemia. 4. Contractility and left ventricular ejection fraction could not be calculated due to arrhythmia. Comment: Results were called to Nate Vizcaino M.D., shortly after study completion.
--- NOTE | 2016-07-14 16:54 | HOSPPROG ---
Hospitalist Progress Note Assessment/Plan: 81 yo M with longstanding hx of difficult to control hyperthyroidism presents s/ p 2 months of poor po intake, diarrhea and weight loss with leonela and sob # leonela: pre renal in the setting of poor po intake, n/v/d and 20-25 pound weight loss, hypotension since arrival. As an OP had been on ARB, lasix, hctz as well likely contributing. Has improved some with IVF overnight, FEurea of 22%. Continue IVF, continue to trend, avoid nephrotoxins. # thyrotoxicosis: with very low tsh and ft4/t3 quite elevated. Has sxs suggestive of overt hyperthyroidism though not clearly in thyroid storm. Will start PTU and lugol solution and monitor. He has been followed by endocrine but reports that they have had issues getting his thyroid under control. Clearly contributing to his presenting issues. # sob: echo and stress test ordered on arrival, stress test with evidence of age indeterminant MN, no chest pain currently, will ask for cardiology to evaluate in am. Echo relatively wnl. # diarrhea/weight loss: in setting of uncontrolled hyperthyroidism, has largely resolved # sacral excoriation: concerning for pressure ulcer, will ask for wound care to evaluate, no clear skin breakdown or cellulitis # dispo: IP status, will need > 48 hours stay for eval/mgmt of above # patient new to my care. Old records reviewed and summarized,further hx obtained from patients present at bedside. Subjective: no significant overnight events, patient is curerntly feeling better , eating, no chest pain Objective: Vital Signs Temp Pulse Resp BP Pulse Ox 36.3 C 89 16 81/46 L 96 07/14/16 10:59 07/14/16 10:59 07/14/16 10:59 07/14/16 10:59 07/14/16 10:59 Laboratory Results 07/14/16 04:41 07/14/16 04:41 07/13/16 07/14/16 07/15/16 05:59 05:59 05:59 Intake Total 2934 1630 Output Total 100 300 Balance 2834 1330 PT 13.8 SEC (12.0-15.0) 07/13/16 15:36 INR 1.07 (0.83-1.16) 07/13/16 15:36 awake alert nad anicteric op clear rrr no mrg cta b soft nt nd no cce warm dry well perfused oriented appropriate - Time Spent With Patient Time Spent with Patient: greater than 35 minutes Time Spent with Patient: Greater than 35 minutes spent on this patients care, greater than 50% of time spent counseling, educating, and coordinating care regarding the above mentioned plan. ICD10 Worksheet Patient Problems: Problems Problem Status Diagnosed Acute renal failure Acute Hypovolemia Acute
[2016-07-14] MEDS: PROPYLTHIOURACIL 50 MG TAB PO SCH ×2 (17:36→22:11)
--- NOTE | 2016-07-14 19:21 | CPR ---
[f rep st] NONINVASIVE CARDIAC PROCEDURE REPORT DATE OF PROCEDURE: 07/14/2016 PROCEDURE: Lexiscan myocardial perfusion imaging injection. INDICATION FOR PROCEDURE: Increased shortness of breath, known history of sick sinus syndrome with v entricular pacer, occasional premature ventricular contraction. PRE: After obtaining informed consent, and ensuring patient's NPO status of caffeine for greater isacc n 12 hours, the patient was placed on electrocardiogram. Initial EKG shows ventricular pace with occ asional unifocal P ventricular contraction. Patient denies any chest pain, shortness of breath, or s ymptoms suggesting of ischemia. Initial blood pressure 100/60, saturating 92%. INJECTION: Patient was given Lexiscan slow IV push followed by a nuclear isotope. Patient reporting post injection of feeling warm, mild increase in shortness of breath. Blood pressure did drop to 90 /50 within 1 minute post injection. Electrocardiogram remain the same, V paced with occasional derek ture ventricular contractions. The patient was given a caffeine beverage. Within 5 minutes, he repo rted all symptoms had subsided. Again, no significant EKG changes, blood pressure did improve, and w ithin 5 minutes a final blood pressure of 102/60, saturating 96%. Patient reported within 5 minutes reporting all symptoms subsided. IMPRESSION: An 81-year-old male admitted for increased shortness of breath, undergoing Lexiscan MPI study for evaluation of cardiac ischemia, mild shortness of breath. Post injection, within 1 minute , improvement, with mild blood pressure drop which improved within 5 minutes. The patient remained V paced with occasional premature ventricular contractions. Vital signs are stable. He will finish p oststress imaging in 3 Nuclear Medicine at this time. /[id number]/MODL
[2016-07-14] MEDS: LIDOCAINE 2% JELLY 5 ML TUBE TP PRN (22:06)
[2016-07-14] MEDS: POTASSIUM IODIDE 30 ML BTL PO SCH (22:07)
[2016-07-14] MEDS: ASCORBIC ACID 500 MG TAB PO SCH (22:13)
[2016-07-14] MEDS: MULTIVITAMINS 1 EACH TAB PO SCH (22:13)
[2016-07-14] MEDS: ASPIRIN 81 MG CHEWABLE TAB PO SCH (22:14)
[2016-07-15] MEDS: PROPYLTHIOURACIL 50 MG TAB PO SCH ×6 (01:15→20:38)
[2016-07-15 04:46] LABS: % IMMATURE GRANULYOCYTES 0.4 % (0.0-1.1); ABSOLUTE IMMATURE GRANULOCYTES 0.02 10^3/uL (0.00-0.10); ADD DIFF? NO; ADD MORPH? NO; ADD SCAN? NO; ATYPICAL LYMPHOCYTE FLAG 10 (0-99); FRAGMENT RBC FLAG 0 (0-99); HEMATOCRIT 35.2 % (40.0-51.0); HEMOGLOBIN 12.4 g/dL (13.7-17.5); LEFT SHIFT FLG 0 (0-99); LIPEMIA HEMOLYSIS FLAG 90 (0-99); MEAN CELL HEMOGLOBIN 31.2 pg (27.9-34.1); MEAN CELL HEMOGLOBIN CONCENTR. 35.2 g/dL (32.4-36.7); MEAN CELL VOLUME 88.7 fL (81.5-99.8); MEAN PLATELET VOLUME 10.7 fL (8.7-11.7); PLATELET CLUMPS FLAG 0 (0-99); PLATELET COUNT 113 10^3/uL (150-400); RED BLOOD CELL COUNT 3.97 10^6/uL (4.40-6.38); RED CELL DISTRIBUTION WIDTH 11.8 % (11.5-15.2)
[2016-07-15 04:50] LABS: ANION GAP 8 mEq/L (8-16); CALCIUM 9.6 mg/dL (8.5-10.4); CARBON DIOXIDE 22 mEq/l (22-31); CHLORIDE 107 mEq/L (97-110); CREATININE 1.9 mg/dL (0.7-1.3); GLOMERULAR FILTRATION RATE 34; GLUCOSE 89 mg/dL (70-100); POTASSIUM 3.6 mEq/L (3.5-5.2); SODIUM 137 mEq/L (134-144)
[2016-07-15] MEDS: HEPARIN 5,000 UNIT/0.5 ML SYR SC SCH ×3 (05:30→21:42)
[2016-07-15] MEDS: AZELASTINE NASAL MDI EACHNARE SCH (09:09)
[2016-07-15] MEDS: MONTELUKAST SODIUM 10 MG TAB PO SCH (09:10)
[2016-07-15] MEDS: traMADol 50 MG TAB PO SCH (09:10)
[2016-07-15] MEDS: GLUCOSAMINE SULF 500 MG CAP PO SCH ×2 (09:10→20:37)
[2016-07-15] MEDS: POTASSIUM IODIDE 30 ML BTL PO SCH ×3 (09:11→21:42)
[2016-07-15] MEDS: FLUTICASONE/SALMETER 250/50MCG DISKUS IH SCH ×2 (11:01→20:33)
[2016-07-15] MEDS: ONDANSETRON DISINTEGRATING 4 MG TAB PO PRN (12:22)
--- NOTE | 2016-07-15 13:27 | GCON ---
[f rep st] CONSULTATION CARDIOLOGY CONSULTATION. DATE OF CONSULTATION: 07/15/2016 INDICATIONS: Abnormal nuclear stress test, symptoms of dyspnea. HISTORY OF PRESENT ILLNESS: The patient is a pleasant 81-year-old male. [facility] His cardiac history is significant for a history of permanent pacemaker implantation dating back to February 2014. He has a Medtronic MRI compatible device. The previous pacemaker int errogations have indicated 95% pacing in the right ventricle and 29% pacing in the atrium. He has no history of coronary artery disease. He does have modest valvular heart disease. An echocardiogram done in December 2015 demonstrated an ejection fraction of 60%, mild calcific changes of the aortic valve and mitral anulus with moderate aortic regurgitation, mild aortic stenosis, mild mitral regurgitatio n, and moderate tricuspid regurgitation. Historically, his estimated RVSPs have been in the mid 50s. He has a small ascending aortic aneurysm. He has no history of congestive heart failure, atrial fi brillation or flutter, and has no history of underlying coronary artery disease. He had a stress mavis cardial perfusion imaging study done in January 2016 that demonstrated diaphragmatic attenuation with an ejection fraction of 46% and no reversible or fixed defects. He is admitted to the [facility] with symptoms of dyspnea. He has had shortness of breath that has been progressive over the last 1-2 months. He describes dyspnea on exertion which has become progressively worse, up to the point where he finally came to the emergency department. He could only walk 10-20 feet before getting short of breath. This was unassociated wi th chest pain, and he noted no orthopnea, PND, or edema. He had no palpitations. More recently, he has developed significant changes to his bowel habits. He has intermittently had constipation with e xplosive diarrhea. He has also had a markedly reduced appetite. He states that food tasted terrible , and he would eat a mere fraction of what he used to. As a result, he lost 30 pounds. Apparently, he has a history of hyperthyroidism and has been on methimazole. He cannot recall the exact timefram e; but in the past and prior to his weight loss, the methimazole was discontinued. Recently, this wa s restarted after it was noted that he was hyperthyroid. On admission here, he was found to be in ac gary renal failure with a BUN of 75 and a creatinine of 3.2. His electrolytes were normal. His CBC d id not indicate significant anemia. His TSH was essentially unmeasurable. His free T4 and total T3 were elevated, consistent with hyperthyroidism. He was treated aggressively with intravenous fluids and PTU. When I talked to him today, he states he feels much better. He was able to walk around the rojas without limiting symptoms. He had an echocardiogram and stress test, which are detailed below. We are consulted because the stress test demonstrated a large fixed inferior defect. PAST MEDICAL HISTORY: 1. History of dual-chamber Medtronic permanent pacemaker implantation back in 2013. 2. History of hyperthyroidism. 3. Hypertension. 4. Erectile dysfunction. 5. Chronic back pain. 6. Nocturnal hypoxemia. 7. Modest valvular heart disease, as noted above. MEDICATIONS: These are detailed on the chart and not repeated here. SURGICAL HISTORY: Permanent pacemaker as described above and back surgery as well as neck surgery FAMILY HISTORY: There is no family history of significant cardiovascular disease. There is a family history of hypertension. SOCIAL HISTORY: He has 2 children. He does not use alcohol or caffeine. He does not smoke. He lik es to walk for exercise. He is . 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 ALLERGIES: Oxycodone and Percocet. REVIEW OF SYSTEMS: With the exception of the above positives, a full 10-point review of systems was performed and was found to be negative. PHYSICAL EXAMINATION: VITAL SIGNS: His blood pressure is 102/72 with a mean of 82. His heart rates have been in the 50s. He is afebrile. He is not orthostatic. GENERAL: He is a healthy white male in no acute distress. HEENT: Normocephalic, atraumatic. He has anicteric sclerae. His oropharynx is unremarkable. NECK: Carotids are 2+ bilaterally with no bruits. He has no jugular venous diste ntion, adenopathy, or thyromegaly. RESPIRATORY: He has clear lung stallworth bilaterally. CARDIAC: He has a permanent pacemaker in the left infraclavicular. His PMI is nondisplaced on auscultation. He has a regular rate and rhythm with a 1/6 systolic ejection murmur. ABDOMEN: Soft and nontender wit h normoactive bowel sounds. No palpable aorta. He has no masses. EXTREMITIES: Warm, dry, and well perfused. He has no lower extremity edema. VASCULAR: He has 2+ radial, dorsal pedal, and posterio r tibial pulses. LABORATORY/X-RAYS DATA: His ECG dated July 13 demonstrates sinus rhythm with a wide left bundle branch block and a left axis deviation. He has an isolated PVC with associated post PVC pause and v entricular pacing. His chest x-ray demonstrated no acute disease. He had an ultrasound of his abdomen and pelvis that demonstrated BPH. An echocardiogram was done on July 13. This demonstrated a normal ejection fraction at 65% to 7 0%. There was basal septal hypertrophy with mild to moderate LVH, evidence of diastolic dysfunction and a septal conduction abnormality. Pacer was noted in the right ventricle. The right ventricle wa s normal in size and function. There was moderate MAC with trace mitral regurgitation and mild britt l stenosis. There was moderate tricuspid insufficiency with an estimated RVSP of 46. He had mild ao rtic sclerosis with mild aortic stenosis and mild to moderate valvular aortic regurgitation. During this hospitalization, he had a Lexiscan myocardial perfusion imaging study done July 14. Lexiscan infusion was uneventful. Nuclear images demonstrated a large fixed defect involving the in ferior wall and inferolateral wall extending into the adjacent inferoseptum. No gating was possible on this study. His initial sodium was 137, potassium 4.1, BUN 75, creatinine 3.2, calcium 10.7, glucose 113, phospho daryl 4.1. Terminal proBNP 711. Troponin 0.021 and subsequently it was 0.019. TSH less than 0.015 wi th a free T4 of 2.82 and a total T3 of 1.770. After hydration, his creatinine is now down to 1.9 wit h a BUN of 52. INR 1.07. White blood cell count on arrival 9.88, hematocrit 43.5, platelet count 21 2,000. IMPRESSION: 1. Dyspnea on exertion at 10-20 feet at the time of arrival. 2. Hyperthyroidism, which has become clinically significant after cessation of methimazole. 3. History of left bundle branch block and intermittent heart block requiring permanent pacing. 4. Modest valvular heart disease. 5. Abnormal stress myocardial perfusion imaging study, as described above. 6. Acute renal failure. DISCUSSION: The patient presents with symptoms of exertional dyspnea, changes in his bowel habits, w eight loss, decreased appetite, and acute renal failure. He is noted to be markedly hyperthyroid. I think his hyperthyroidism is the unifying diagnosis. He appears to be much improved after aggressiv e therapy for his hyperthyroidism as well as hydration. He states he is now able to walk, at least o n the telemetry rojas here, without limiting symptoms of dyspnea. I think it is likely that he will r eturn to his premorbid condition with adequate therapy for his hyperthyroidism. I also anticipate a return of normal renal function. During this hospitalization, he did, however, have a stress myocard ial perfusion imaging study. Those findings are detailed above. I did go down and review those pers onally with Dr. Ramires. The size of this defect is very large, encompassing probably 40% of the mavis cardium. This is certainly disproportionate to the findings noted on his echocardiogram, where there was no myocardial infarction indicated. Therefore, I think it is unlikely that the patient could olsen ve suffered such a large infarction in the absence of a wall motion abnormality on his echocardiogram . Unfortunately, gating of the nuclear stress test was not possible, possibly related to his bundle branch block and pacing. The patient currently is feeling much better. He has never had angina. Hi s cardiac enzymes are currently negative. Therefore, I do not think that we need to proceed at the p resent time with an aggressive invasive strategy. I do think that further testing here in the near f uture would be indicated in light of the size of this defect. RECOMMENDATIONS: 1. Agree with current management of his hypothyroidism. 2. Maintain therapy with low-dose aspirin. 3. I think he can be safely discharged from the hospital with early followup with me in the outpatie nt setting. 4. Once his renal function normalizes, we will plan for coronary angiography. /[id number]/MODL
--- NOTE | 2016-07-15 14:37 | HOSPPROG ---
Hospitalist Progress Note Assessment/Plan: 81 yo M with longstanding hx of difficult to control hyperthyroidism presents s/ p 2 months of poor po intake, diarrhea and weight loss with leonela and sob # leonela: pre renal in the setting of poor po intake, n/v/d and 20-25 pound weight loss, hypotension since arrival and longstanding hyperthyroidism. As an OP had been on ARB, lasix, hctz as well likely contributing. FEurea of 22%. Improved significantly with IVF, holding BP meds and diuretics. # thyrotoxicosis: with very low tsh and ft4/t3 quite elevated. Has sxs suggestive of overt hyperthyroidism including diarrhea, weight loss and somnolence/slowed thinking typical for hyperthyroidism in elderly. Has intermediate scores for thyroid storm by Tamayo/wartofsky scoring. Started on PTU and SSKI and already feels better. Will monitor FT4/T3 on current treatment and likely dc in coming 1-2 days as long as continues to respond. Will switch to methimazole at dc. # sob: largely resolved # abnormal MPI: large defect noted on MPI which does not correlate to echo findings which are relatively normal. No known CAD. Appreciate cardiology consult and plans for cath in the future when renal function normalized. # diarrhea/weight loss: in setting of uncontrolled hyperthyroidism, has largely resolved # sacral excoriation: concerning for pressure ulcer, will ask for wound care to evaluate, no clear skin breakdown or cellulitis # dispo: IP status, will need > 48 hours stay for eval/mgmt of above # Care plan reviewed with cardiology including plans for outpatient cath. Subjective: no significant overnight events, patient currently feeling much better and notes that he feels his thinking has largely normalized. Objective: Vital Signs Temp Pulse Resp BP Pulse Ox 36.5 C 59 L 20 102/72 94 07/15/16 11:42 07/15/16 11:42 07/15/16 11:42 07/15/16 11:42 07/15/16 11:42 Laboratory Results 07/15/16 04:15 07/15/16 04:15 07/14/16 07/15/16 07/16/16 05:59 05:59 05:59 Intake Total 2934 2430 Output Total 100 1400 Balance 2834 1030 PT 13.8 SEC (12.0-15.0) 07/13/16 15:36 INR 1.07 (0.83-1.16) 07/13/16 15:36 awake alert nad anicteric op clear rrr no mrg cta b soft nt nd no cce warm dry well perfused oriented appropriate - Time Spent With Patient Time Spent with Patient: greater than 35 minutes Time Spent with Patient: Greater than 35 minutes spent on this patients care, greater than 50% of time spent counseling, educating, and coordinating care regarding the above mentioned plan. ICD10 Worksheet Patient Problems: Problems Problem Status Diagnosed Acute renal failure Acute Hypovolemia Acute
[2016-07-15] MEDS: ASCORBIC ACID 500 MG TAB PO SCH (20:38)
[2016-07-15] MEDS: ASPIRIN 81 MG CHEWABLE TAB PO SCH (20:38)
[2016-07-15] MEDS: MULTIVITAMINS 1 EACH TAB PO SCH (20:38)
[2016-07-16] MEDS: PROPYLTHIOURACIL 50 MG TAB PO SCH ×6 (01:52→19:51)
[2016-07-16 04:48] LABS: % IMMATURE GRANULYOCYTES 0.6 % (0.0-1.1); ABSOLUTE IMMATURE GRANULOCYTES 0.03 10^3/uL (0.00-0.10); ADD DIFF? NO; ADD MORPH? NO; ADD SCAN? NO; ATYPICAL LYMPHOCYTE FLAG 20 (0-99); FRAGMENT RBC FLAG 0 (0-99); HEMATOCRIT 35.2 % (40.0-51.0); HEMOGLOBIN 12.2 g/dL (13.7-17.5); LEFT SHIFT FLG 10 (0-99); LIPEMIA HEMOLYSIS FLAG 90 (0-99); MEAN CELL HEMOGLOBIN CONCENTR. 34.7 g/dL (32.4-36.7); MEAN CELL VOLUME 89.6 fL (81.5-99.8); PLATELET CLUMPS FLAG 10 (0-99); PLATELET COUNT 113 10^3/uL (150-400); RED BLOOD CELL COUNT 3.93 10^6/uL (4.40-6.38); RED CELL DISTRIBUTION WIDTH 11.8 % (11.5-15.2)
[2016-07-16 04:59] LABS: ANION GAP 5 mEq/L (8-16); CALCIUM 9.6 mg/dL (8.5-10.4); CARBON DIOXIDE 24 mEq/l (22-31); CHLORIDE 107 mEq/L (97-110); CREATININE 1.7 mg/dL (0.7-1.3); GLOMERULAR FILTRATION RATE 39; GLUCOSE 96 mg/dL (70-100); POTASSIUM 3.9 mEq/L (3.5-5.2); SODIUM 136 mEq/L (134-144)
[2016-07-16] MEDS: HEPARIN 5,000 UNIT/0.5 ML SYR SC SCH ×3 (05:02→22:23)
[2016-07-16] MEDS: MONTELUKAST SODIUM 10 MG TAB PO SCH (10:08)
[2016-07-16] MEDS: GLUCOSAMINE SULF 500 MG CAP PO SCH ×2 (10:08→19:49)
[2016-07-16] MEDS: traMADol 50 MG TAB PO SCH ×3 (10:09→19:49)
[2016-07-16] MEDS: POTASSIUM IODIDE 30 ML BTL PO SCH ×3 (10:12→22:24)
[2016-07-16] MEDS: AZELASTINE NASAL MDI EACHNARE SCH (10:13)
[2016-07-16] MEDS ORDERED: METOPROLOL SUCCINATE XR 25 MG TAB PO SCH (11:00)
[2016-07-16] MEDS: FLUTICASONE/SALMETER 250/50MCG DISKUS IH SCH ×2 (11:05→21:01)
[2016-07-16] MEDS: ONDANSETRON DISINTEGRATING 4 MG TAB PO PRN ×2 (11:11→22:23)
--- NOTE | 2016-07-16 11:40 | WOCRNPDOC ---
PATY Advanced Assessment Note - Skin Integrity Problem, Advanced Assess Coccyx Dressing Type: Open to Air Exudate Amount: None Exudate Characteristic(s): None Celia Wound Tissue: Blanching, Intact Celia Wound Swelling: Mild Wound Bed Color: Red Site Measurement - Head-to-Toe Length X Width X Depth (cm): [id number] Skin Integrity Problem Comment: Small red, raised area over coccyx w/ no fluctuance, presently intact. Patient reports that he has had ongoing tenderness at this site "for years" that "comes and goes", no h/o drainage or wound. Suspect this could be a transient pilonidal cyst. Site presently blanching. Patient refused protective dressing, stating he felt it put "pressure " on it and "made it feel worse." He does currently have a PRN order for topical 2% lidocaine jelly, which he reports as effective. He agreed to off- load site using a pressure-relieving waffle cushion. I also spoke w/ pier workerRUMA Barr about putting an Accu-max pump on his bed as a precautionary measure and less invasive intervention. Nursing will continue to monitor site.
[2016-07-16] MEDS ORDERED: NS 500 ML IV ONE (12:00)
--- NOTE | 2016-07-16 13:58 | SOAPPROG ---
ROSANGELA Progress Note Assessment/Plan: Assessment: 1. Hyperthyroidism. This is being aggressively managed at the present time. He presented with weight loss, dehydration, anorexia, dyspnea and acute renal failure. All of these clinical parameters appear to be improving. 2. History of left bundle branch block with intermittent high-grade AV block. 3. Previous dual-chamber Medtronic pacemaker implantation. 4. Arrhythmia. Telemetry has indicated multiple narrow complex tachycardias. These are distinctly different from his paced rhythm. Therefore, these are not likely to be pacemaker mediated tachycardia. I think her most consistent with self-limited episodes of SVT which have been seen previously on his pacemaker interrogations. In the distant past, he had a single episode of atrial fibrillation identified. However, we have not seen recurrence. It is very likely that this arrhythmias triggered at least in part by his thyroid status. 5. Abnormal stress myocardial perfusion imaging study. This demonstrates a large, inferior and inferolateral as well as inferoseptal fixed defect. I think this is likely artifactual. Clinically, he is not manifesting any evidence of underlying coronary disease. Plan: 1. I would like to start him on a low-dose of metoprolol. I will write for 12.5 mg of Lopressor twice daily. 2. We will continue to monitor him on telemetry. 3. At some point in the near future, we can consider further evaluation of his abnormal stress myocardial perfusion imaging study likely with coronary angiography. I do not think that needs to be done during this hospitalization. 07/16/16 13:54 Subjective: He states he feels well today. On telemetry, he had multiple episodes of a narrow complex tachycardia. Fortunately, these to appear to be self-limited and last only 10-20 seconds. These are asymptomatic. His pacemaker was interrogated today. That interrogation demonstrated normal device function. There were no identified arrhythmias however his device was not programmed to capture atrial arrhythmias below a rate of 177 beats per minute. Objective: Vital Signs Temp Pulse Resp BP Pulse Ox 36.6 C 70 20 97/57 L 96 07/16/16 11:37 07/16/16 11:37 07/16/16 11:37 07/16/16 13:11 07/16/16 11:37 Laboratory Results 07/16/16 04:11 07/16/16 04:11 07/15/16 07/16/16 07/17/16 05:59 05:59 05:59 Intake Total 2430 1280 Output Total 1400 650 Balance 1030 630 PT 13.8 SEC (12.0-15.0) 07/13/16 15:36 INR 1.07 (0.83-1.16) 07/13/16 15:36 Physical Exam - Physical Exam General Appearance: WD/WN, no apparent distress Neck: non-tender, full range of motion Respiratory: lungs clear Cardiac/Chest: regular rate, rhythm Peripheral Pulses: 2+: carotid (R), carotid (L) ICD10 Worksheet Patient Problems: Problems Problem Status Diagnosed Acute renal failure Acute Hypovolemia Acute
--- NOTE | 2016-07-16 15:36 | HOSPPROG ---
Hospitalist Progress Note Assessment/Plan: 81 yo M with longstanding hx of difficult to control hyperthyroidism presents s/ p 2 months of poor po intake, diarrhea and weight loss with leonela and sob # leonela: pre renal in the setting of poor po intake, n/v/d and 20-25 pound weight loss, hypotension since arrival and longstanding hyperthyroidism. As an OP had been on ARB, lasix, hctz as well likely contributing. FEurea of 22% c/w pre renal. Continues to improve, may be some component of ATN as well. # thyrotoxicosis: with very low tsh and ft4/t3 quite elevated. Has sxs suggestive of overt hyperthyroidism including diarrhea, weight loss and somnolence/slowed thinking typical for hyperthyroidism in elderly. Has intermediate scores for thyroid storm by Tamayo/wartofsky scoring. Started on PTU and SSKI with dec in thyroid hormones, will switch to methimazole in am. Needs to have f/u with endocrinology set up prior to dc--patient would like to get f/u set up with Dr. Edwar Gil--[phone]. # sob: largely resolved # abnormal MPI: large defect noted on MPI which does not correlate to echo findings which are relatively normal. No known CAD. Appreciate cardiology consult and plans for cath in the future when renal function normalized. # diarrhea/weight loss: in setting of uncontrolled hyperthyroidism, has largely resolved # sacral excoriation: concerning for pressure ulcer, will ask for wound care to evaluate, no clear skin breakdown or cellulitis # dispo: IP status, will need > 48 hours stay for eval/mgmt of above, likely dc on 07/17 with f/u with endocrinology as above Subjective: no significant overnight events, patient currently feeling better but still with poor appetite, not dizzy or lightheaded, no n/v Objective: Vital Signs Temp Pulse Resp BP Pulse Ox 36.6 C 70 20 97/57 L 96 07/16/16 11:37 07/16/16 11:37 07/16/16 11:37 07/16/16 13:11 07/16/16 11:37 Laboratory Results 07/16/16 04:11 07/16/16 04:11 07/15/16 07/16/16 07/17/16 05:59 05:59 05:59 Intake Total 2430 1280 Output Total 1400 650 Balance 1030 630 PT 13.8 SEC (12.0-15.0) 07/13/16 15:36 INR 1.07 (0.83-1.16) 07/13/16 15:36 awake alert nad anicteric op clear rrr no mrg cta b soft nt nd no cce warm dry well perfused oriented appropriate - Time Spent With Patient Time Spent with Patient: greater than 35 minutes Time Spent with Patient: Greater than 35 minutes spent on this patients care, greater than 50% of time spent counseling, educating, and coordinating care regarding the above mentioned plan. ICD10 Worksheet Patient Problems: Problems Problem Status Diagnosed Acute renal failure Acute Hypovolemia Acute
[2016-07-16] MEDS ORDERED: BISACODYL 10 MG SUPP PR PRN (15:47)
[2016-07-16] MEDS ORDERED: LACTULOSE 20 GM/30 ML UDCUP PO PRN (15:47)
[2016-07-16] MEDS ORDERED: MAGNESIUM HYDROXIDE 30 ML UDCUP PO PRN (15:47)
[2016-07-16] MEDS: POLYETHYLENE GLYCOL 3350 17 GM PKT PO PRN (16:17)
[2016-07-16] MEDS: ASCORBIC ACID 500 MG TAB PO SCH (19:49)
[2016-07-16] MEDS: SENNOSIDES/DOCUSATE SODIUM TAB PO SCH (19:49)
[2016-07-16] MEDS: ASPIRIN 81 MG CHEWABLE TAB PO SCH (19:50)
[2016-07-16] MEDS: METOPROLOL TARTRATE 25 MG TAB PO SCH (19:50)
[2016-07-16] MEDS: MULTIVITAMINS 1 EACH TAB PO SCH (19:50)
[2016-07-17 06:12] LABS: T3 (TRIIODOTHYRONINE) TOTAL 1.43 ng/mL (0.970-1.690)
[2016-07-17] MEDS: HEPARIN 5,000 UNIT/0.5 ML SYR SC SCH ×3 (06:37→21:19)
[2016-07-17] MEDS: METHIMAZOLE 5 MG TAB PO SCH ×4 (07:15→17:16)
[2016-07-17] MEDS: ONDANSETRON DISINTEGRATING 4 MG TAB PO PRN (08:38)
[2016-07-17] MEDS: GLUCOSAMINE SULF 500 MG CAP PO SCH ×2 (08:40→21:20)
[2016-07-17] MEDS: traMADol 50 MG TAB PO SCH ×2 (08:41→21:18)
[2016-07-17] MEDS: SENNOSIDES/DOCUSATE SODIUM TAB PO SCH ×2 (08:41→21:19)
[2016-07-17] MEDS: METOPROLOL TARTRATE 25 MG TAB PO SCH ×2 (08:42→21:20)
[2016-07-17] MEDS: MONTELUKAST SODIUM 10 MG TAB PO SCH (08:42)
[2016-07-17] MEDS: AZELASTINE NASAL MDI EACHNARE SCH (08:46)
[2016-07-17] MEDS: FLUTICASONE/SALMETER 250/50MCG DISKUS IH SCH (08:58)
[2016-07-17] MEDS: LIDOCAINE 2% JELLY 5 ML TUBE TP PRN (09:37)
--- NOTE | 2016-07-17 09:58 | PDCARPN ---
Cardiology Progress Note Chief Complaint: Nausea Assessment/Plan: Assessment: Patient is an 81 y/o male with history of hyperthyroidism, acute renal failure ( new), HTN, and PPM for SSS, who presented to [facility] with complaints of dehydration and dyspnea. Today, the patient feels more nausea than yesterday. Overall, the patient feels as if he is improved (dyspnea in particular), but the nausea was a set back today. No ambulation or appetite this morning. Nursing with PO and IV zofran (and uncertainty on success with this therapy). No chest pains or pressure. No PND or orthopnea. Bowel movement today (ongoing constipation). Plan: (1) Continue therapy on ASA given patient's CV risks (2) Low dose beta blockers should continue - this therapy has not started, but should this morning (3) Ongoing, aggressive, thyroid therapy (4) Would encourage PO fluid consumption (5) Ambulation needed - consider OT/PT consultation (6) Will continue to follow patient (7) Maintain pacer interrogations as scheduled Subjective: Nausea noted today Reviewed/Discussed With: multidisciplinary team Time Spent With Patient: 15 minutes Objective: Vital Signs (8 Hrs) Temp Pulse Resp BP Pulse Ox 07/17/16 07:43 36.7 C 61 21 H 130/65 H 93 07/17/16 04:00 36.9 C 78 19 111/58 L 93 Intake/Output (24 Hrs) 07/16/16 07/17/16 07/18/16 05:59 05:59 05:59 Intake Total 1280 800 Output Total 650 875 200 Balance 630 -75 -200 Intake: Oral (ml) 1280 300 IV Infused (ml) 500 Ns 500 ml @ As Directed 500 IV ONCE ONE Rx#: [id number] Output: Urine (ml) 650 875 200 Urinal 650 875 200 Other: Weight 95.7 kg 95.5 kg Intake Quantity Yes Sufficient Number of Voids Toilet 4 Urinal 1 Number of Stools Toilet 1 Result Diagrams: 07/16/16 04:11 07/16/16 04:11 Cardiac Labs: Laboratory Tests 07/13/16 07/14/16 07/14/16 15:36 04:41 08:41 BUN 75 H 73 H Creatinine 3.2 H 2.6 H Troponin I 0.021 0.019 TSH < 0.015 L Free T4 2.82 H Total T3 1.770 H 07/15/16 07/16/16 07/17/16 04:15 04:11 04:56 BUN 52 H 45 H Creatinine 1.9 H 1.7 H Troponin I TSH Free T4 2.70 H 2.65 H Total T3 1.280 1.430 Telemetry: AV sequential pacing - Physical Exam Constitutional: WDWN, healthy appearing, no apparent distress Eyes: PERRL Ears, Nose, Mouth, Throat: moist mucous membranes Cardiovascular: regular rate and rhythm, No systolic murmur Peripheral Pulses: 2+: dorsalis-pedis (R), dorsalis-pedis (L) Respiratory: clear to auscultate bilat, no crackles, no wheezes Gastrointestinal: normoactive bowel sounds Skin: no edema Neurologic: AAOx3, CN II-XII grossly intact Psychiatric: cooperative, interactive, following commands ICD10 Worksheet Patient Problems: Problems Problem Status Diagnosed Acute renal failure Acute Hypovolemia Acute
--- NOTE | 2016-07-17 14:28 | HOSPPROG ---
Hospitalist Progress Note Assessment/Plan: 81 yo M with longstanding hx of difficult to control hyperthyroidism presents s/ p 2 months of poor po intake, diarrhea and weight loss with dionicio and sob # DIONICIO - pre renal 2/2 poor po intake nausea, vomiting, and diarrhea. As an outpatient had been on ARB, lasix, hctz as well likely contributing. has improved with fluid resuscitation- creatinine 3.2-> 1.7 - continue holding home meds - restart IV fluids if p.o. intake remains to low # Thyrotoxicosis- TSH <0.015 on admission with elevated free T4 and T3. Has intermediate scores for thyroid storm by Tamayo/wartofsky scoring. Started on PTU and SSKI with dec in thyroid hormones- switched to methimazole this admission oxygen saturations 96% on room air - continue methimazole - outpatient f/u with endocrinology - with Dr. Edwar [phone]. # abnormal myocardial perfusion imaging- cardiology consulting- defects thought to be large artifact - cardiac catheterization in the future when renal function at baseline - started on metoprolol - continue daily aspirin - continue telemetry monitoring # intermittent variable tachyarrhythmias- permanent pacemaker in place- telemetry( personally reviewed and interpreted) a paced in the 70s - continue metoprolol # diarrhea/weight loss- in setting of uncontrolled hyperthyroidism- markedly improved # sacral excoriation- concerning for pressure ulcer- wound care consultation # dispo: IP status, will need > 48 hours stay for eval/mgmt of above I have discussed the case with the RN- we will push oral fluid hydration this afternoon anticipate possible disposition tomorrow Subjective: nauseated this morning Objective: Vital Signs Temp Pulse Resp BP Pulse Ox 36.4 C 74 20 122/56 H 96 07/17/16 11:28 07/17/16 11:28 07/17/16 11:28 07/17/16 11:28 07/17/16 11:28 Laboratory Results 07/16/16 04:11 07/16/16 04:11 07/16/16 07/17/16 07/18/16 05:59 05:59 05:59 Intake Total 1280 800 Output Total 650 875 200 Balance 630 -75 -200 PT 13.8 SEC (12.0-15.0) 07/13/16 15:36 INR 1.07 (0.83-1.16) 07/13/16 15:36 - Physical Exam Constitutional: chronically ill appearing Eyes: anicteric sclera Ears, Nose, Mouth, Throat: dry mucous membranes Cardiovascular: regular rate and rhythym, systolic murmur Respiratory: no respiratory distress, no rales or rhonchi Gastrointestinal: normoactive bowel sounds, soft, non-tender abdomen Genitourinary: no bladder fullness Skin: warm, normal color Musculoskeletal: No asymmetric calves Neurologic: AAOx3, sensation intact bilaterally Psychiatric: interacting appropriately, not anxious Lymph, Heme, Immunologic: no cervical LAD ICD10 Worksheet Patient Problems: Problems Problem Status Diagnosed Acute renal failure Acute Hypovolemia Acute
[2016-07-17] MEDS: NS 1,000 ML IV SCH (14:47)
[2016-07-17] MEDS: POLYETHYLENE GLYCOL 3350 17 GM PKT PO PRN (17:39)
[2016-07-17] MEDS: ASPIRIN 81 MG CHEWABLE TAB PO SCH (21:19)
[2016-07-17] MEDS: ASCORBIC ACID 500 MG TAB PO SCH (21:20)
[2016-07-17] MEDS: MULTIVITAMINS 1 EACH TAB PO SCH (21:20)
[2016-07-18] MEDS: NS 1,000 ML IV SCH (01:14)
[2016-07-18] MEDS: FLUTICASONE/SALMETER 250/50MCG DISKUS IH SCH ×2 (01:43→09:07)
[2016-07-18] MEDS: ONDANSETRON DISINTEGRATING 4 MG TAB PO PRN ×2 (04:53→13:25)
[2016-07-18] MEDS: HEPARIN 5,000 UNIT/0.5 ML SYR SC SCH ×2 (04:53→13:34)
[2016-07-18 05:48] VITALS: RESP 19
[2016-07-18 05:54] LABS: ANION GAP 7 mEq/L (8-16); CALCIUM 10.4 mg/dL (8.5-10.4); CARBON DIOXIDE 23 mEq/l (22-31); CHLORIDE 108 mEq/L (97-110); CREATININE 1.3 mg/dL (0.7-1.3); GLOMERULAR FILTRATION RATE 53; GLUCOSE 87 mg/dL (70-100); SODIUM 138 mEq/L (134-144)
[2016-07-18 07:16] VITALS: BP 141/69; PULSE 68; TEMP 98.2; O2SAT 92
[2016-07-18] MEDS: traMADol 50 MG TAB PO SCH (09:42)
[2016-07-18] MEDS: GLUCOSAMINE SULF 500 MG CAP PO SCH (09:42)
[2016-07-18] MEDS: METOPROLOL TARTRATE 25 MG TAB PO SCH (09:43)
[2016-07-18] MEDS: SENNOSIDES/DOCUSATE SODIUM TAB PO SCH (09:43)
[2016-07-18] MEDS: METHIMAZOLE 5 MG TAB PO SCH ×2 (09:44→12:37)
[2016-07-18] MEDS: MONTELUKAST SODIUM 10 MG TAB PO SCH (09:44)
[2016-07-18] MEDS: AZELASTINE NASAL MDI EACHNARE SCH (09:45)
--- NOTE | 2016-07-18 13:34 | PDCARPN ---
Cardiology Progress Note Chief Complaint: Patient doing well today. No complaints Assessment/Plan: Assessment: 07-18-16 Patient feeling well today, but continues to have episodes of nausea - today was reportedly better than yesterday, but the symptoms were present nonetheless. No chest pains or pressure. Renal insufficiency has normalized ( creatinine was 1.3 today). Family was present with the patient in the office today. 07-17-16 Patient is an 81 y/o male with history of hyperthyroidism, acute renal failure ( new), HTN, and PPM for SSS, who presented to [facility] with complaints of dehydration and dyspnea. Today, the patient feels more nausea than yesterday. Overall, the patient feels as if he is improved (dyspnea in particular), but the nausea was a set back today. No ambulation or appetite this morning. Nursing with PO and IV zofran (and uncertainty on success with this therapy). No chest pains or pressure. No PND or orthopnea. Bowel movement today (ongoing constipation). Plan: (1) outpatient follow up with endocrinology has been arranged (2) ASA therapy to continue with CV risks (3) would continue outpatient therapy on low dose beta blockers (4) would arrange for outpatient follow up with cardiology - Dr. Latonia Payne (5) aggressive PT/OT (6) patient to be discharged today Subjective: no cardiovascular complaints Reviewed/Discussed With: family, hospitalist, multidisciplinary team Time Spent With Patient: 15 minutes Objective: Vital Signs (8 Hrs) Temp Pulse Resp BP Pulse Ox 07/18/16 07:14 36.8 C 68 19 141/69 H 92 Intake/Output (24 Hrs) 07/17/16 07/18/16 07/19/16 05:59 05:59 05:59 Intake Total 800 3050 Output Total 875 1175 Balance -75 1875 Intake: Oral (ml) 300 1750 IV Infused (ml) 500 1300 Ns 500 ml @ As Directed 500 IV ONCE ONE Rx#: [id number] Ns 1,000 ml @ 100 mls/hr 1300 IV CONT ZEENAT Rx#: [id number] Output: Urine (ml) 875 1175 Urinal 875 1175 Other: Weight 95.5 kg 95.9 kg Output Comment Urinal Miralax provided Number of Voids Toilet 4 Urinal 3 Number of Stools Toilet 1 Urinal 0 Result Diagrams: 07/16/16 04:11 07/18/16 05:05 - Physical Exam Constitutional: WDWN, healthy appearing, no apparent distress Eyes: PERRL Ears, Nose, Mouth, Throat: moist mucous membranes Cardiovascular: regular rate and rhythm, no murmurs Peripheral Pulses: 2+: dorsalis-pedis (R), dorsalis-pedis (L) Respiratory: clear to auscultate bilat Gastrointestinal: normoactive bowel sounds Skin: no rashes, no edema Musculoskeletal: no muscular tenderness Neurologic: AAOx3, CN II-XII grossly intact Psychiatric: cooperative, interactive, following commands ICD10 Worksheet Patient Problems: Problems Problem Status Diagnosed Acute renal failure Acute Hypovolemia Acute
--- NOTE | 2016-07-18 16:26 | GDS ---
[f rep st] DISCHARGE SUMMARY DISCHARGE DIAGNOSES: Include: 1. Thyrotoxicosis. 2. Acute kidney injury. 3. Intermittent, variable tachyarrhythmias. 4. Diarrhea, weight loss. 5. Sacral excoriation. 6. Abnormal myocardial perfusion imaging, thought artifact. HISTORY OF PRESENT ILLNESS: An 81-year-old male with a longstanding history of difficult to control hyperthyroidism. Who presents with 2 months of poor p.o. intake, diarrhea, and weight loss. For deta ils of the patient's initial presentation, please see the history and physical dated 07/13/2016. CONSULTATIVE SERVICES: Include Cardiology. PROCEDURES: 07/14/2016, patient had myocardial perfusion scan that showed a large age-indeterminate inferior wall defect. HOSPITAL COURSE BY ISSUE: 1. Thyrotoxicosis: Patient was thought to be very symptomatic. Laboratories still grossly abnormal. Had an increase in his methimazole dose from daily to t.i.d. In conjunction with Endocrinology cons ultation. 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 2. Large myocardial profusion defect: Cardiology did review the patient's case and felt likely the imaging was secondary to artifact. He was however, initiated on a beta-naresh and kept on daily asp irin. He is to follow in the Cardiology Clinic post disposition once his hyperthyroidism is stabiliz ed and his acute kidney injury is fully recovered. At that time, he can undergo cardiac catheterizat ion. 3. Intermittent variable tachyarrhythmias: Has a pacemaker in place. Remained A paced in the 70s. At the end of his hospitalization, he will be continued on metoprolol. 4. Sacral excoriation: Patient received Wound Care consultation, being discharged with Wound Care r ecs. 5. Acute kidney injury, thought prerenal in origin: Patient presented with creatinine of 3.2, had h is Lasix, hydrochlorothiazide, losartan, and potassium held. On the day of disposition, his creatini ne has normalized to 1.3. We will continue to hold all of these medications at disposition. He is t o follow with Dr. Blackburn, his outpatient primary care doc for blood pressure and lab checks in the ne xt 7-14 days on metoprolol, which is a new medication. His blood pressures have been well controlled with systolic ranging in the 110s to 130s. MEDICATIONS AT THE TIME OF DISPOSITION: Please reference medication reconciliation printed on 2016. FOLLOWUP APPOINTMENTS: Include: 1. Next week with outpatient Endocrinology. 2. In the next 7-14 days with outpatient PCP. PENDING STUDIES AT THE TIME OF THIS DICTATION: None. TIME SPENT: I spent greater than 30 minutes in the planning and coordination of this discharge. /[id number]/MODL
== END 2016-07-18 16:38 | disposition home or self-care (01) | DRG 684 ==
LOC: F2W 18:03
PROVIDERS: ADMIT Internal Medicine; ATTEND Internal Medicine
DX: N17.9 Acute kidney failure, unspecified (principal); E05.90 Thyrotoxicosis, unspecified without thyrotoxic crisis or storm; R19.7 Diarrhea, unspecified; S30.810A Abrasion of lower back and pelvis, initial encounter; G47.33 Obstructive sleep apnea (adult) (pediatric); I10 Essential (primary) hypertension; G89.29 Other chronic pain; Z95.0 Presence of cardiac pacemaker; Z23 Encounter for immunization
CPT/HCPCS: 84480-90; 97161-GP; A9500; G0009; G0103; G8978-GP-CI; G8979-GP-CI; G8980-GP-CI; J2405; J2785

== ENCOUNTER → 2016-07-27 | Outpatient (CLI) | payer OTHER, MEDICARE ==
--- NOTE | 2016-07-27 18:06 | DX ---
Thoracic spine, 2 views. History: Evaluate for stenosis. Findings: Moderate compression deformity of T11 and T12. Lower thoracic degenerative disk disease wit h intervertebral disk height loss at multiple segments, moderate severity. No subluxation or spondylo listhesis. Mild thoracic dextroscoliosis. Upper lumbar dextroscoliosis is moderate. Moderate kyphosis at the thoracolumbar junction. Impression: 1. Multilevel lower thoracic degenerative disk disease, moderate severity, with compression deformiti es of T11 and T12, uncertain age. Thoracolumbar kyphosis.
--- NOTE | 2016-07-27 18:17 | DX ---
Lumbar Spine, 6 Views, Including Lateral Flexion and Extension Views, 07/27/2016 History: History of spinal stenosis. Comparison examination: None available. Findings: Extensive features of degenerative disk disease are present throughout the entirety of the lumbar spine with marked intervertebral disk height loss throughout, especially the upper lumbar spin e. There are moderate compression deformities of T12, L1, and mild compression deformity of L2 which may be secondary to previous trauma. Moderate dextroscoliosis on the AP radiograph. Prior laminectomy and decompression at L4 and L5. Bilateral sacroiliac degenerative changes are incidentally noted. On lateral flexion and extension radiographs, limited excursion without instability identified. Impression: Extensive multilevel lumbar degenerative disk disease most severe in the upper lumbar reg ion and thoracolumbar junction. Compression deformities of T12, L1, and L2 may be acute or remote. Mo derate lumbar dextroscoliosis.
== END ==
LOC: FIMAGING 16:26
PROVIDERS: ATTEND Family Medicine Sports Medicine
DX: M51.36 Other intervertebral disc degeneration, lumbar region (principal); M41.9 Scoliosis, unspecified; R93.7 Abnormal findings on diagnostic imaging of other parts of musculoskeletal system

== ENCOUNTER 2016-08-23 08:02 | Observation (INO) | payer OTHER, MEDICARE ==
[2016-08-23] MEDS ORDERED: diphenhydrAMINE 25 MG CAP PO ONE ×2 (08:08→08:41)
[2016-08-23] MEDS ORDERED: ASPIRIN EC 325 MG TAB PO ONE ×2 (08:08→08:41)
[2016-08-23] MEDS ORDERED: NS 1,000 ML IV ONE (08:08)
[2016-08-23] MEDS ORDERED: FAMOTIDINE 20 MG TAB PO ONE (08:08)
[2016-08-23] MEDS ORDERED: DIAZEPAM 5 MG TAB PO ONE (08:08)
[2016-08-23] MEDS ORDERED: FAMOTIDINE 20 MG TAB ONE (08:41)
[2016-08-23] MEDS ORDERED: DIAZEPAM 5 MG TAB ONE (08:41)
[2016-08-23 08:56] LABS: % IMMATURE GRANULYOCYTES 0.2 % (0.0-1.1); ABSOLUTE IMMATURE GRANULOCYTES 0.01 10^3/uL (0.00-0.10); ADD DIFF? NO; ADD MORPH? NO; ADD SCAN? NO; ATYPICAL LYMPHOCYTE FLAG 20 (0-99); FRAGMENT RBC FLAG 0 (0-99); HEMATOCRIT 36.2 % (40.0-51.0); HEMOGLOBIN 12.1 g/dL (13.7-17.5); LEFT SHIFT FLG 0 (0-99); LIPEMIA HEMOLYSIS FLAG 80 (0-99); MEAN CELL HEMOGLOBIN 29.9 pg (27.9-34.1); MEAN CELL HEMOGLOBIN CONCENTR. 33.4 g/dL (32.4-36.7); MEAN CELL VOLUME 89.4 fL (81.5-99.8); MEAN PLATELET VOLUME 10.1 fL (8.7-11.7); PLATELET CLUMPS FLAG 0 (0-99); PLATELET COUNT 157 10^3/uL (150-400); RED BLOOD CELL COUNT 4.05 10^6/uL (4.40-6.38); RED CELL DISTRIBUTION WIDTH 14.8 % (11.5-15.2)
[2016-08-23 09:12] LABS: ANION GAP 8 mEq/L (8-16); CALCIUM 9.8 mg/dL (8.5-10.4); CARBON DIOXIDE 21 mEq/l (22-31); CHLORIDE 114 mEq/L (97-110); CHOLESTEROL 131 mg/dL (140-220); CHOLESTEROL/HDL RATIO 2.73 RATIO (1.00-4.97); CREATININE 1.1 mg/dL (0.7-1.3); GLOMERULAR FILTRATION RATE > 60; GLUCOSE 79 mg/dL (70-100); HIGH DENSITY LIPOPROTEIN 48 mg/dL (40-65); LDL/HDL RATIO 1.35 RATIO (1.00-3.64); LOW DENSITY LIPOPROTEIN 65 mg/dL (80-100); MAGNESIUM 2.2 mg/dL (1.6-2.3); NON-HIGH DENSITY LIPOPROTEIN 83 mg/dL (90-129); POTASSIUM 3.8 mEq/L (3.5-5.2); SODIUM 143 mEq/L (134-144); TRIGLYCERIDE 90 mg/dL (40-150); VERY LOW DENSITY LIPOPROTEINS 18 mg/dL (8-25)
[2016-08-23] MEDS ORDERED: fentaNYL 100 MCG/2 ML INJ ONE ×2 (09:18→11:53)
[2016-08-23] MEDS ORDERED: LIDOCAINE 1% 30 ML SDV ONE (09:18)
[2016-08-23] MEDS ORDERED: MIDAZOLAM 2 MG/2 ML VIAL ONE ×2 (09:18→11:53)
[2016-08-23] MEDS ORDERED: IOPAMIDOL (ISOVUE-370) 150 ML BTL IV ONE ×2 (09:19→11:29)
[2016-08-23] MEDS ORDERED: HEPARIN 10,000 UNIT/10 ML MDV ONE (09:19)
[2016-08-23] MEDS ORDERED: VERAPAMIL 5 MG/2 ML VIAL ONE (09:19)
[2016-08-23 09:51] LABS: INR 1.19 (0.83-1.16); PROTIME(PATIENT) 15.1 SEC (12.0-15.0)
--- NOTE | 2016-08-23 11:06 | CPEKG ---
Heart Rate: 60 RR Interval: 1000 P-R Interval: 184 QRSD Interval: 172 QT Interval: 476 QTC Interval: 476 P Gardner: -19 QRS Gardner: -50 T Wave Gardner: 96 EKG Severity - ABNORMAL ECG - EKG Impression: ATRIAL-SENSED VENTRICULAR-PACED COMPLEXES EKG Impression: PVC Electronically Signed By: Lucero Torres 23-Aug-2016 15:19:30
--- NOTE | 2016-08-23 11:56 | PDDXCAT ---
Diagnostic Cath Note - . 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 There is appropriate bifurcation into the left anterior descending and circumflex distributions. There is no disease noted. LAD: Large caliber transapical vessel. Single large diagonal. Luminal irregularities with no obstructive lesions. LCX: Moderate caliber vessel. 3 obtuse marginal branches identified. 80-90% lesion within the AV groove between the 1st and 2nd diagonal branches. RCA: Large caliber, dominant vessel. The PDA and a single large posterolateral branch are noted. Luminal irregularities are noted with no obstructive lesions. EDP: 172/ mmHg. LVEF: 50-55%. Query apical hypokinesis. Suboptimal opacification of the left ventricle. - Findings-Right Heart Catheterization AO: 158/75/107 mmHg. Complications: None. Estimated blood loss: <50ml Closure method: TR Band Assessment: Single-vessel coronary artery disease with a high-grade lesion noted within the AV groove circumflex. Abnormal nuclear stress test demonstrating a large territory of inferior reversible ischemia. Symptoms of exertional dyspnea. Plan: He will be referred to interventional Cardiology for PCI of the circumflex. Patient Problems: Problems Problem Status Onset Acute renal failure Acute Hypovolemia Acute
--- NOTE | 2016-08-23 12:43 | PDDXCAT ---
Diagnostic Cath Note - . Date: 08/23/16 Intervention: Yes (see below) *Procedure Indication: I was called for an intraoperative consultation after the identification of an 80% mid left circumflex lesion identified by Dr. Payne during diagnostic catheterization. Access: left radial artery Procedure: 1. selective coronary angiography 2. drug eluting stent implantation in the mid left circumflex *Materials Selective Coronary Angiography Size: 6F Selective Coronary Angiography and Intervention Materials: EBU 3.5, 0.014" Intuition Guide Wire, Guideliner, 2.5 x 15 mm Emerge balloon, 2.75 x 16 mm Synergy drug eluting stent. *Findings-Selective coronary angiography LCX: There is a 80% stenosis in the mid left circumflex with CLEVE III flow. This lesion was intervened with a 2.75 x 16 mm Synergy drug eluting stent with excellent angiographic results s/p stent implantation. The stent was placed in the segment of the vessel between the obtuse marginal 1 and 2 without compromise of either of those side branches. *Intervention Intervention: A 6 [place] EBU 3.5 guiding catheter was used for guide catheter support. A 0.014 " Intuition Guide Wire was advanced into the distal left circumflex under direct fluoroscopic and angiographic guidance. Angiomax bolus and continuous infusion were given continuously with a documented ACT over 300 seconds. A 2.5 x 15 mm Emerge balloon was placed in the mid left circumflex lesion and used to predilate the left circumflex lesion under 8 aileen of pressure. A 2.75 x 16 mm Synergy drug eluting stent was exchanged for the balloon and inflated twice to 14 aileen of pressure. S/p stent implantation there were excellent angiographic results with 0% residual stenosis with CLEVE III flow. *Summary Complications: None Estimated blood loss: <50ml Closure method: TR band Assessment: 1. [place] vessel coronary artery disease with flow-limiting obstruction of the mid left circumflex that was intervened with a 2.75 x 16 mm Synergy drug eluting stent (80% pre stent implantation with CLEVE III flow; 0% residual residual stenosis post sent implantation with CLEVE III flow). The stent was placed in the segment of the vessel between the obtuse marginal 1 and 2 without compromise of either of those side branches. 2. The patient had 3/10 residual chest discomfort post stent implantation with chest pressure and tightness, which was evaluated by Dr. Payne with a repeat EKG and echocardiogram following the procedure. Patient Problems: Problems Problem Status Onset Acute renal failure Acute Hypovolemia Acute
[2016-08-23] MEDS ORDERED: CLOPIDOGREL BISULFATE 75 MG TAB ONE (13:13)
[2016-08-23] MEDS ORDERED: NITROGLYCERIN 0.4 MG BTL SL ONE ×2 (14:23→14:30)
--- NOTE | 2016-08-23 14:39 | ECHO ---
[id number] + + [address] : : [place] [address] : : [phone] + + Adult Echocardiographic Report + ------+ :Name: MELLO FOUNTAIN Date: 08/23/2016 01:51 PM BP: 190/95 mmHg : : Hospital Admission Number: [id number] Locatio n: CVC: :: 1935 Gender: Male : :Age: 81 yrs Race: WH,White : :Reason For Study: chest pain s/p stent : :History: S/P stent : + ------+ MMode/2D Measurements \T\ Calculations LVLd ap4: 9.9 cm SV(MOD-sp4): 89.0 ml EDV(MOD-sp4): 191.0 ml LVLs ap4: 8.6 cm ESV(MOD-sp4): 102.0 ml EF(MOD-sp4): 46.6 % Normal Measurement Values: + + :LVIDd (3.5-5.7cm) IVSd (0.6-1.1cm) LVPWd (0.6-1.1cm) Aortic Root (2.0-3.7cm)Left Atrium (1.5-4.0cm): :LV Vol(d) (76-115ml) LV Vol(s) (29-48ml) Ejec Fraction (50-65%)PV Aaron (0.6- 1.2m/s) TV Aaron (0.4-1.0m/s) : :MV E Aaron (0.8-1.0m/s)MV A Aaron (0.3-1.0m/s)LVOT Aaron (0.7-1.2m/s) Asc Ao Aaron ( 0.9-1.8m/s) : + + Left Ventricle The left ventricle is normal in size. Left ventricular systolic function is mildly reduced. Ejection Fraction = 50-55%. There is mild global hypokinesis of the left ventricle. Conclusion Limited STAT echocardiogram to evaluate for wall motion S/P stent. Left ventricular systolic function is mildly reduced. Ejection Fraction = 50-55%. There is mild global hypokinesis of the left ventricle. Final Reading Physician: Jaylen Quintanilla signed on 08/23/2016 02:37 PM Ordering Physician: Ben Payne Performed By: Alison Choudhary
[2016-08-23] MEDS ORDERED: TEMAZEPAM 15 MG CAP PO PRN (14:42)
[2016-08-23] MEDS ORDERED: ATROPINE SULFATE 1 MG/10 ML SYR IVP PRN (14:42)
[2016-08-23] MEDS ORDERED: ONDANSETRON DISINTEGRATING 4 MG TAB PO PRN (14:42)
[2016-08-23] MEDS ORDERED: LORazepam 2 MG/ML INJ IVP PRN (14:42)
[2016-08-23] MEDS ORDERED: NITROGLYCERIN 0.4 MG BTL SL PRN (14:42)
[2016-08-23] MEDS ORDERED: ONDANSETRON 4 MG/2 ML VIAL IVP PRN (14:42)
[2016-08-23] MEDS ORDERED: CLOPIDOGREL BISULFATE 75 MG TAB PO ONE (14:42)
[2016-08-23] MEDS ORDERED: NS 1,000 ML IV SCH (14:45)
[2016-08-23] MEDS ORDERED: hydrALAZINE 20 MG/ML VIAL IVP ONE (16:00)
[2016-08-23] MEDS ORDERED: hydrALAZINE 20 MG/ML VIAL IVP PRN (16:41)
--- NOTE | 2016-08-23 16:58 | CPEKG ---
Heart Rate: 64 RR Interval: 938 QRSD Interval: 168 QT Interval: 508 QTC Interval: 525 P [place]: 0 QRS [place]: 82 T Wave [place]: -89 EKG Severity - ABNORMAL ECG - EKG Impression: A-V DUAL-PACED COMPLEXES W/ SOME INHIBITION Electronically Signed By: Lucero Torres 24-Aug-2016 15:07:44
[2016-08-23] MEDS: CARVEDILOL 6.25 MG TAB PO SCH (18:43)
[2016-08-24 04:14] VITALS: TEMP 97.9
[2016-08-24 05:12] LABS: % IMMATURE GRANULYOCYTES 0.4 % (0.0-1.1); ABSOLUTE IMMATURE GRANULOCYTES 0.02 10^3/uL (0.00-0.10); ADD DIFF? NO; ADD MORPH? NO; ADD SCAN? NO; ATYPICAL LYMPHOCYTE FLAG 0 (0-99); FRAGMENT RBC FLAG 0 (0-99); HEMATOCRIT 35.8 % (40.0-51.0); LEFT SHIFT FLG 0 (0-99); LIPEMIA HEMOLYSIS FLAG 80 (0-99); MEAN CELL HEMOGLOBIN CONCENTR. 33.5 g/dL (32.4-36.7); MEAN CELL VOLUME 92.5 fL (81.5-99.8); MEAN PLATELET VOLUME 9.8 fL (8.7-11.7); PLATELET CLUMPS FLAG 0 (0-99); PLATELET COUNT 137 10^3/uL (150-400); RED BLOOD CELL COUNT 3.87 10^6/uL (4.40-6.38); RED CELL DISTRIBUTION WIDTH 15.1 % (11.5-15.2)
[2016-08-24 05:21] LABS: ANION GAP 8 mEq/L (8-16); ASPARTATE AMINOTRANSFERASE 59 IU/L (17-59); BILIRUBIN,TOTAL 1.4 mg/dL (0.1-1.4); CALCIUM 9.3 mg/dL (8.5-10.4); CARBON DIOXIDE 21 mEq/l (22-31); CHLORIDE 114 mEq/L (97-110); GLOMERULAR FILTRATION RATE > 60; GLUCOSE 77 mg/dL (70-100); LACTATE DEHYDROGENASE 540 IU/L (313-618); MAGNESIUM 2.2 mg/dL (1.6-2.3); POTASSIUM 4.1 mEq/L (3.5-5.2); SODIUM 143 mEq/L (134-144)
--- NOTE | 2016-08-24 08:59 | CPEKG ---
Heart Rate: 74 RR Interval: 811 QRSD Interval: 132 QT Interval: 468 QTC Interval: 520 P [place]: 0 QRS [place]: -21 T Wave [place]: 170 EKG Severity - ABNORMAL ECG - EKG Impression: VENTRICULAR-PACED COMPLEXES Electronically Signed By: Lucero Torres 24-Aug-2016 15:07:31
[2016-08-24] MEDS ORDERED: ASPIRIN EC 325 MG TAB PO SCH (09:00)
[2016-08-24] MEDS ORDERED: AZELASTINE HCL EACHNARE SCH (09:00)
[2016-08-24] MEDS ORDERED: GUANFACINE HCL 1 MG PO SCH (09:00)
[2016-08-24] MEDS ORDERED: guanFACINE HCL 1 MG TAB PO SCH (09:00)
[2016-08-24] MEDS ORDERED: CLOPIDOGREL BISULFATE 75 MG TAB PO SCH (09:00)
[2016-08-24] MEDS ORDERED: FLUTICASONE/SALMETER 250/50MCG DISKUS IH SCH (09:00)
[2016-08-24] MEDS ORDERED: AZELASTINE NASAL MDI EACHNARE SCH (09:00)
[2016-08-24] MEDS: CARVEDILOL 6.25 MG TAB PO SCH ×2 (09:21→11:37)
[2016-08-24] MEDS: METHIMAZOLE 5 MG TAB PO SCH ×2 (09:22→09:39)
[2016-08-24] MEDS ORDERED: ATORVASTATIN CALCIUM 40 MG TAB PO SCH (10:30)
[2016-08-24 10:55] VITALS: BP 167/87; PULSE 61; RESP 15; O2SAT 96
[2016-08-24] MEDS ORDERED: MONTELUKAST SODIUM 10 MG TAB PO SCH (21:00)
[2016-08-24] MEDS ORDERED: ASPIRIN 81 MG CHEWABLE TAB PO SCH (21:00)
--- NOTE | 2016-08-30 13:31 | GDS ---
[f rep st] DISCHARGE SUMMARY ADMIT DIAGNOSES: 1. Abnormal nuclear stress test. 2. Planned left heart catheterization with possible stent placement. DISCHARGE DIAGNOSES: 1. Coronary artery disease. 2. Stent placed to the mid left circumflex. 3. Hypertension. COURSE OF HOSPITALIZATION: This gentleman was seen in clinic by Dr. Ben Payne. He had an abnorm al nuclear stress test. It was felt this should be further evaluated with left heart catheterizatio n. The patient was in agreement with this plan. He was taken to the [facility] by Dr. Ben Payne w here he did find an 80% mid left circumflex lesion. Dr. Best Pina then intervened placing a drug -eluting Synergy stent to the mid left circumflex with no complications. He then was recovered and was taken to PCU for overnight observation. Telemetry remained stable. He has had no recurring praveen st discomfort. He has been up ambulating with no problems. At this time, he currently is stable fo r discharge. EXAM: VITAL SIGNS: On day of discharge, blood pressure 155/80, heart rate 105, temperature 36.6, h eart rhythm paced. HEART: Rate regular. No murmurs, rubs, gallops. LUNGS: Sounds are clear to a uscultation. No wheezes, rales or rhonchi. Cath insertion site is intact with no bleeding, indurat ion or pain. Peripheral pulses 2+ with no peripheral edema noted. ALLERGIES: He has allergies to acetaminophen, oxycodone and oxycodone HCL. DISCHARGE MEDICATIONS: 1. Vitamin C 500 mg twice daily. 2. Multivitamin daily. 3. Supplements daily. 4. Advair 250/50 one puff twice daily. 5. Azelastine HCL 1 spray twice daily. 6. Proventil inhaler 1-2 puffs inhaled every 4 hours as needed. 7. Montelukast sodium 10 mg at bedtime. 8. Guaifenesin 1 mg daily. 9. Tapazole 5 mg twice daily. 10. Nitrostat 0.4 mg sublingual as needed for chest discomfort once per episode. 11. Plavix 75 mg daily. 12. Coreg 6.25 mg twice daily. 13. Lipitor 40 mg daily. 14. Aspirin 325 mg daily. DISCHARGE PLAN: He will follow a low-fat, low-cholesterol, low-sodium diet. He is referred to [facility]. He will follow up with Dr. Payne in 1 week. At this time, he currently is stable for phillip rincon. /[id number]/MODL
== END 2016-08-24 13:08 | disposition home or self-care (01) ==
LOC: FCATH 08:02 → F2W 13:37
PROVIDERS: ADMIT Internal Medicine Cardiovascular Disease; ATTEND Internal Medicine Cardiovascular Disease
PROC: 027034Z Dilation of Coronary Artery, One Artery with Drug-eluting Intraluminal Device, Percutaneous Approach (ICD-10-PCS; principal; 2016-08-23)
PROC: B2111ZZ Fluoroscopy of Multiple Coronary Arteries using Low Osmolar Contrast (ICD-10-PCS; principal; 2016-08-23)
PROC: 4A023N7 Measurement of Cardiac Sampling and Pressure, Left Heart, Percutaneous Approach (ICD-10-PCS; principal; 2016-08-23)
PROC: B2151ZZ Fluoroscopy of Left Heart using Low Osmolar Contrast (ICD-10-PCS; principal; 2016-08-23)
DX: I25.10 Atherosclerotic heart disease of native coronary artery without angina pectoris (principal); N18.9 Chronic kidney disease, unspecified; I35.0 Nonrheumatic aortic (valve) stenosis; Z95.0 Presence of cardiac pacemaker
CPT/HCPCS: 93005; 93308; 93458; C1725; C1769; C1874; C1887; C9600; J0360; J1644; J2250; J3010; Q9967

== ENCOUNTER 2016-09-30 16:06 | Inpatient (IN) | payer OTHER, MEDICARE ==
--- NOTE | 2016-09-30 16:29 | CPEKG ---
Heart Rate: 76 RR Interval: 789 P-R Interval: 262 QRSD Interval: 158 QT Interval: 432 QTC Interval: 486 P [employer]: -35 QRS [employer]: -80 T Wave [employer]: 55 EKG Severity - ABNORMAL ECG - EKG Impression: SINUS RHYTHM EKG Impression: PAIRED VENTRICULAR PREMATURE COMPLEXES EKG Impression: FIRST DEGREE AV BLOCK EKG Impression: RIGHT BUNDLE BRANCH BLOCK EKG Impression: PROBABLE ANTEROSEPTAL INFARCT, AGE INDETERM Electronically Signed By: Pablo Vela 30-Sep-2016 16:42:02
--- NOTE | 2016-09-30 16:37 | EDPHY ---
H & P Time Seen by Provider: 09/30/16 16:19 HPI/ROS: CHIEF COMPLAINT: Short of breath, and" I think it's my thyroid" HISTORY OF PRESENT ILLNESS: Patient is a history of coronary stenting is on Plavix and aspirin. He also has a history of previous hospitalization for thyrotoxicosis. He presents today with shortness of breath which is present since yesterday. He normally can go 20 minutes on a treadmill at a mile and a half per hour but yesterday going barely over a mile an hour he could only go 15 minutes and he was having to stop because of his shortness of breath. This is not associated with chest pain or coughing. Much worse with exertion. Symptoms severe today. REVIEW OF SYSTEMS: Eye: no change in vision ENT: no sore throat, he has been treated for the last 2 weeks with antibiotics for a left lower tooth infection which is improving Cardiac: no chest pain or syncope Pulmonary: HPI, no cough or hemoptysis Abdomen: no vomiting, diarrhea, abdominal pain. He has noticed black stools for the past 24 hours Musculoskeletal: Chronic back pain and chronic lower extremity swelling, unchanged Skin: no rash Neuro: no headache Constitutional: no fever : no urinary symptoms A comprehensive 10 point review of systems is otherwise negative aside from elements mentioned in the history of present illness. PAST MEDICAL HISTORY: Includes chronic low back pain, aortic stenosis, hypertension, pacemaker. Also includes thyrotoxicosis and an admission for acute kidney injury, admission history and physical dated 07/13 and discharge summary dated 07/18 of this year both reviewed by myself. Circumflex stenting on August 23. Social history: , currently hospitalized. General Appearance: Alert and conversant, cooperative. Eyes: No scleral icterus. ENT, Mouth: Normal mucous membranes. No trismus. Respiratory: Faint expiratory wheezing bilaterally, no rales or focal lung sounds. Cardiovascular: Regular rate and rhythm. Gastrointestinal: Abdomen is soft and non tender. Rectal exam shows black stool sent for Hemoccult. Neurological: Alert and oriented x3. Normally conversant. Face symmetric, normal movement and sensation in all extremities. Skin: Warm and dry, no rashes. Musculoskeletal: Bilateral lower extremity peripheral edema. Psychiatric: Not agitated. Emergency Department course/MDM: 1709: Labs reviewed include hematocrit of 25 and Hemoccult-positive stool. Likely upper GI bleed. At this time Protonix 40 mg ordered, consultation with hospitalist and GI. Baseline hematocrit 35, initial systolic blood pressure 110, heart rate of 80. 1810: 124/58. Smoking Status: Never smoked Constitutional: Initial Vital Signs Temperature (C) 36.5 C 09/30/16 16:10 Heart Rate 80 09/30/16 16:10 Respiratory Rate 22 H 09/30/16 16:10 Blood Pressure 110/59 L 09/30/16 16:10 O2 Sat (%) 96 09/30/16 16:10 O2 Delivery Mode Room Air Allergies/Adverse Reactions: acetaminophen [From Percocet] Allergy (Verified 09/30/16 16:09) oxycodone Allergy (Verified 09/30/16 16:09) oxycodone HCl [From Percocet] Allergy (Verified 09/30/16 16:09) Home Medications: Medication Instructions Recorded Ascorbic Acid [Vitamin C 500 mg 250 mg PO BID 02/17/14 (*)] Herbals/Supplements -Info Only 1 ea PO DAILY 02/17/14 Multivitamins [Multivitamin (*)] 1 each PO HS 02/17/14 Albuterol [Proventil Inhaler HFA 1 - 2 puffs IH Q4H PRN 07/13/16 (*)] Azelastine HCl 1 spray EACHNARE BID 07/13/16 Fluticasone/Salmeter 250/50Mcg 1 puffs IH BID 07/13/16 [Advair 250/50 (*)] Methimazole [Tapazole 5MG (*)] 5 mg PO BID 08/23/16 Montelukast Sodium 10 mg PO HS 08/23/16 guanFACINE HCL [Guanfacine HCl ER] 1 mg PO DAILY 08/23/16 Aspirin EC [Aspirin EC 325 mg (*)] 325 mg PO DAILY #0 tab 08/24/16 Atorvastatin Calcium [Lipitor 40 40 mg PO DAILY #30 tab 08/24/16 mg (*)] Carvedilol [Coreg (*)] 6.25 mg PO BIDMEAL #60 tab 08/24/16 Clopidogrel Bisulfate [Plavix (*)] 75 mg PO DAILY #0 tab 08/24/16 Nitroglycerin [Nitrostat 0.4 mg 0.4 mg SL ONCE PRN #1 btl 08/24/16 (*)] Medical Decision Making - Diagnostics EKG Interpretation: 12-lead EKG interpreted by me; official reading is in trace master. My interpretation is sinus rhythm with PVC and right bundle branch block Imaging: Imaging Impressions Chest X-Ray 09/30/16 16:36 Impression: Hypoventilatory chest with basilar atelectasis. Chest x-ray personally reviewed by myself. Differential Diagnosis: Differential diagnosis considered for shortness of breath including but not limited to pulmonary infectious process, COPD, asthma, pulmonary embolus and congestive heart failure. Consult/Admit Bed Type: [place] [id number], [place] [id number] Critical Care Time: Critical care time spent by me, Dr. Vela, exclusively with the care of this patient was 30 minutes, exclusive of PA or CASE INVESTIGATOR time and exclusive of separate procedures. The organ system at risk was gastrointestinal or hematologic and I ordered IV fluid resuscitation, proton pump inhibitor, consultation with hospitalist and medicine man, multiple diagnostic studies; to stabilize the patient and prevent worsening of the patient's condition. - Data Points Laboratory Results: Laboratory Results 09/30/16 16:39 09/30/16 16:39 09/30/16 09/30/16 09/30/16 16:39 16:39 16:39 WBC RBC Hgb Hct MCV MCH MCHC RDW Plt Count MPV Neut % (Auto) Lymph % (Auto) [place] % (Auto) Eos % (Auto) Baso % (Auto) Nucleat RBC Rel Count Absolute Neuts (auto) Absolute Lymphs (auto) Absolute Monos (auto) Absolute Eos (auto) Absolute Basos (auto) Absolute Nucleated RBC Immature Gran % Immature Gran # PT 15.3 SEC H SEC (12.0-15.0) INR 1.21 H (0.83-1.16) APTT 26.2 SEC SEC (23.0-38.0) Sodium 141 mEq/L mEq/L (134-144) Potassium 3.9 mEq/L mEq/L (3.5-5.2) Chloride 110 mEq/L mEq/L (97-110) Carbon Dioxide 23 mEq/l mEq/l (22-31) Anion Gap 8 mEq/L mEq/L (8-16) BUN 62 mg/dL H mg/dL (7-23) Creatinine 1.2 mg/dL mg/dL (0.7-1.3) Estimated GFR 58 Glucose 84 mg/dL mg/dL (70-100) Calcium 9.5 mg/dL mg/dL (8.5-10.4) Troponin I < 0.012 ng/mL ng/mL (0-0.034) TSH 54.300 uIU/mL H uIU/mL (0.465-4.680) Stool Occult Bld Scrn POSITIVE H (NEGATIVE) 09/30/16 16:39 WBC 6.29 10^3/uL 10^3/uL (3.80-9.50) RBC 2.69 10^6/uL L 10^6/uL (4.40-6.38) Hgb 8.3 g/dL L g/dL (13.7-17.5) Hct 25.3 % L % (40.0-51.0) MCV 94.1 fL fL (81.5-99.8) MCH 30.9 pg pg (27.9-34.1) MCHC 32.8 g/dL g/dL (32.4-36.7) RDW 15.4 % H % (11.5-15.2) Plt Count 132 10^3/uL L 10^3/uL (150-400) MPV 10.2 fL fL (8.7-11.7) Neut % (Auto) 70.5 % % (39.3-74.2) Lymph % (Auto) 20.0 % % (15.0-45.0) Hitchcock % (Auto) 5.7 % % (4.5-13.0) Eos % (Auto) 2.7 % % (0.6-7.6) Baso % (Auto) 0.5 % % (0.3-1.7) Nucleat RBC Rel Count 0.0 % % (0.0-0.2) Absolute Neuts (auto) 4.43 10^3/uL 10^3/uL (1.70-6.50) Absolute Lymphs (auto) 1.26 10^3/uL 10^3/uL (1.00-3.00) Absolute Monos (auto) 0.36 10^3/uL 10^3/uL (0.30-0.80) Absolute Eos (auto) 0.17 10^3/uL 10^3/uL (0.03-0.40) Absolute Basos (auto) 0.03 10^3/uL 10^3/uL (0.02-0.10) Absolute Nucleated RBC 0.00 10^3/uL 10^3/uL (0-0.01) Immature Gran % 0.6 % % (0.0-1.1) Immature Gran # 0.04 10^3/uL 10^3/uL (0.00-0.10) PT INR APTT Sodium Potassium Chloride Carbon Dioxide Anion Gap BUN Creatinine Estimated GFR Glucose Calcium Troponin I TSH Stool Occult Bld Scrn Medications Given: Discontinued Medications Pantoprazole Sodium 40 mg/ (Sodium Chloride) 100 mls @ 200 mls/hr IV EDNOW ONE Stop: 09/30/16 17:37 Last Admin: 09/30/16 17:48 Dose: 100 mls Sodium Chloride (Ns) 1,000 mls @ 0 mls/hr IV ONCE ONE PRN Reason: Wide Open Stop: 09/30/16 17:10 Last Admin: 09/30/16 17:19 Dose: 1,000 mls Departure - Departure Disposition: [facility] Acute Clinical Impression: Upper GI bleed Condition: Fair
[2016-09-30 16:48] LABS: % IMMATURE GRANULYOCYTES 0.6 % (0.0-1.1); ABSOLUTE IMMATURE GRANULOCYTES 0.04 10^3/uL (0.00-0.10); ADD DIFF? NO; ADD MORPH? NO; ADD SCAN? NO; ATYPICAL LYMPHOCYTE FLAG 0 (0-99); FRAGMENT RBC FLAG 0 (0-99); HEMATOCRIT 25.3 % (40.0-51.0); HEMOGLOBIN 8.3 g/dL (13.7-17.5); LEFT SHIFT FLG 0 (0-99); LIPEMIA HEMOLYSIS FLAG 80 (0-99); MEAN CELL HEMOGLOBIN 30.9 pg (27.9-34.1); MEAN CELL HEMOGLOBIN CONCENTR. 32.8 g/dL (32.4-36.7); MEAN CELL VOLUME 94.1 fL (81.5-99.8); MEAN PLATELET VOLUME 10.2 fL (8.7-11.7); PLATELET CLUMPS FLAG 10 (0-99); PLATELET COUNT 132 10^3/uL (150-400); RED BLOOD CELL COUNT 2.69 10^6/uL (4.40-6.38); RED CELL DISTRIBUTION WIDTH 15.4 % (11.5-15.2)
[2016-09-30 16:56] LABS: INR 1.21 (0.83-1.16); PROTIME(PATIENT) 15.3 SEC (12.0-15.0)
[2016-09-30 16:57] LABS: ANION GAP 8 mEq/L (8-16); APTT 26.2 SEC (23.0-38.0); CALCIUM 9.5 mg/dL (8.5-10.4); CARBON DIOXIDE 23 mEq/l (22-31); CHLORIDE 110 mEq/L (97-110); CREATININE 1.2 mg/dL (0.7-1.3); GLOMERULAR FILTRATION RATE 58; GLUCOSE 84 mg/dL (70-100); POTASSIUM 3.9 mEq/L (3.5-5.2); SODIUM 141 mEq/L (134-144)
[2016-09-30] MEDS ORDERED: PANTOPRAZOLE SODIUM 40 MG in NS 100 ML IV ONE (17:08)
[2016-09-30 17:09] LABS: TROPONIN I < 0.012 ng/mL (0-0.034)
[2016-09-30] MEDS ORDERED: NS 1,000 ML IV ONE (17:09)
[2016-09-30] MEDS ORDERED: ONDANSETRON 4 MG/2 ML VIAL IVP PRN (18:51)
[2016-09-30] MEDS ORDERED: NS 1,000 ML IV SCH (19:00)
--- NOTE | 2016-09-30 19:22 | GHP ---
[f rep st] HISTORY AND PHYSICAL DATE OF ADMISSION: 09/30/2016 CHIEF COMPLAINT: Shortness of breath and melena. HISTORY: The patient is an 81-year-old male who had a stent to his circumflex artery August 23, for which he is on aspirin and Plavix. He now presents to the hospital with 1 day of shortness of breath which he noticed while he was on his treadmill. He started with black stools yesterday afternoon. He also complains of chills, and it feels like his thyroid is unregulated. He denies any abdominal pain. There has been no bright red blood. There has been no nausea or vomiting. PAST MEDICAL HISTORY: 1. Drug eluting stent to circumflex artery, august 23, 2016. 2. Hyperthyroidism with thyrotoxicosis. 3. Pacemaker, secondary to heart block. MEDICATIONS: Please see computer record for full detailed list. ALLERGIES: Oxycodone. SOCIAL HISTORY: No smoking. No alcohol. Lives with his . REVIEW OF SYSTEMS: Complete review of systems obtained. Review of systems is negative regarding constitutional, HEENT, GI, pulmonary, cardiovascular, , hematology, skin, musculoskeletal, endocrine, and psych other than positives and negatives as noted in HPI. FAMILY HISTORY: Reviewed and noncontributory. PHYSICAL EXAMINATION: GENERAL: Well-developed, well-nourished male, in no acute distress. VITAL SIGNS: Temperature is 36.5, pulse of 80, blood pressure 110/59, satting 96% on room air. EYES: Normal conjunctivae. Pupils round and react to light. ENT: Normal ears and nose. Hearing intact. Normal teeth. Oropharynx moist. NECK: Trachea midline. No thyromegaly. CHEST: Normal effort. LUNGS: Clear to auscultation bilaterally. CARDIOVASCULAR: Regular rate and rhythm. No murmur. 2+ lower extremity edema with chronic lower extremity venous stasis changes. ABDOMEN: Soft, nontender. No hepatosplenomegaly. SKIN: Warm, dry, and intact. No rash. MUSCULOSKELETAL: No cyanosis or clubbing. Strength 5/5 upper and lower extremities. NEUROLOGIC : Cranial nerves intact. Normal sensation light touch. PSYCH: Alert and oriented x3. Normal affect. Normal judgment and insight. Normal memory. LABORATORY DATA: White count 6.29, hematocrit 25.3, platelets 132. Sodium 141 , potassium 3.9, chloride 110, bicarb 23, BUN 62, creatinine 1.2, glucose 84. Troponins negative. TSH is 54. INR is 1.2. Chest x-ray is negative. EKG viewed by me and my personal interpretation is sinus rhythm with right bundle branch block. This case was discussed with Dr. Pablo Vela, emergency room provider. He has personally spoken with Gastroenterology, and they will plan endoscopy in the morning. 1. Upper gastrointestinal bleed. Patient should get an EGD in the morning. Will make him n.p.o. after midnight. Will start him empirically on a proton pump inhibitor. Will hold aspirin and Plavix. 3. Acute blood loss anemia. Will follow serial H and H's and monitor for transfusion needs. 4. Coronary artery disease, status post recent stent to the circumflex, August 23. Depending on EGD results, discussion with Cardiology regarding anti- platelet treatment moving forward. He will need to have at least Plavix resumed. 5. Hyperthyroidism with over-suppressed thyroid function. His TSH is very elevated. Will hold his methimazole. His last methimazole dose reduction was 30 days ago, and he likely needs to have it reduced further. This can be coordinated with his plane captain. 6. Pacemaker, secondary to heart block. This is stable. 7. Chronic edema. He is on chronic Lasix which we will hold, as I believe he is volume depleted intravascularly due to his GI bleed. 8. Deep vein thrombosis prophylaxis. Given his acute GI bleed, he will be given SCDs only. CODE STATUS: Full. ADMISSION STATUS: Will admit to observation as, depending on EGD results, he may be able to go home relatively rapidly. /[id number]/MODL MTDD
[2016-09-30] MEDS ORDERED: traMADol 50 MG TAB PO PRN (19:37)
[2016-09-30] MEDS: FLUTICASONE/SALMETER 250/50MCG DISKUS IH SCH (20:46)
[2016-09-30] MEDS ORDERED: ALBUTEROL 200 PUFFS/18 GM MDI IH PRN (22:12)
[2016-09-30] MEDS: PANTOPRAZOLE SODIUM 40 MG in NS 100 ML IV SCH (22:21)
[2016-09-30] MEDS: MONTELUKAST SODIUM 10 MG TAB PO SCH (22:25)
[2016-09-30] MEDS: AZELASTINE HCL 0.1% EACHNARE SCH (22:25)
[2016-10-01] MEDS: traZODone 50 MG TAB PO PRN ×2 (03:21→21:11)
[2016-10-01 05:14] LABS: ATYPICAL LYMPHOCYTE FLAG 0 (0-99); FRAGMENT RBC FLAG 0 (0-99); HEMATOCRIT 19.4 % (40.0-51.0); LEFT SHIFT FLG 0 (0-99); LIPEMIA HEMOLYSIS FLAG 80 (0-99); MEAN CELL HEMOGLOBIN 31.5 pg (27.9-34.1); MEAN CELL VOLUME 95.6 fL (81.5-99.8); PLATELET CLUMPS FLAG 0 (0-99); PLATELET COUNT 78 10^3/uL (150-400); RED BLOOD CELL COUNT 2.03 10^6/uL (4.40-6.38); RED CELL DISTRIBUTION WIDTH 15.6 % (11.5-15.2)
[2016-10-01 05:15] LABS: HEMOGLOBIN 6.4 g/dL (13.7-17.5)
[2016-10-01 05:27] LABS: ALANINE AMINOTRANSFERASE 30 IU/L (21-72); ALBUMIN 2.5 g/dL (3.5-5.0); ALKALINE PHOSPHATASE 41 IU/L (38-126); ANION GAP 3 mEq/L (8-16); ASPARTATE AMINOTRANSFERASE 18 IU/L (17-59); BILIRUBIN-CONJUGATED 0.4 mg/dL (0.0-0.5); BILIRUBIN-UNCONJUGATED 0.6 mg/dL (0.0-1.1); CALCIUM 8.7 mg/dL (8.5-10.4); CARBON DIOXIDE 21 mEq/l (22-31); CHLORIDE 115 mEq/L (97-110); GLOMERULAR FILTRATION RATE > 60; GLUCOSE 82 mg/dL (70-100); POTASSIUM 3.6 mEq/L (3.5-5.2); SODIUM 139 mEq/L (134-144); TOTAL PROTEIN 4.5 g/dL (6.3-8.2)
[2016-10-01 05:53] LABS: ADD MORPH? NO
[2016-10-01 05:55] LABS: SCAN POSITIVE
[2016-10-01 06:12] LABS: ADD DIFF? YES; ADD SCAN? NO
[2016-10-01 06:37] LABS: PLATELET ESTIMATE DECREASED (ADEQ); POLYCHROMASIA 1+
[2016-10-01] MEDS: ATORVASTATIN CALCIUM 40 MG TAB PO SCH (08:48)
[2016-10-01] MEDS: PANTOPRAZOLE SODIUM 40 MG in NS 100 ML IV SCH ×2 (08:48→21:07)
[2016-10-01] MEDS: LISINOPRIL 10 MG TAB PO SCH (08:49)
[2016-10-01] MEDS: AZELASTINE HCL 0.1% EACHNARE SCH ×2 (08:49→20:12)
[2016-10-01] MEDS: CARVEDILOL 6.25 MG TAB PO SCH ×2 (08:49→18:19)
[2016-10-01] MEDS: Guanfacine Hcl [Guanfacine Hcl Er] 1 MG PO SCH (08:51)
[2016-10-01] MEDS: FLUTICASONE/SALMETER 250/50MCG DISKUS IH SCH ×2 (08:51→21:38)
[2016-10-01] MEDS ORDERED: PROPOFOL/EMULSION 500 MG/50 ML BOTTLE IV ONE (10:35)
[2016-10-01] MEDS ORDERED: EPINEPHrine 1 MG/10 ML SYR IVP ONE (10:45)
--- NOTE | 2016-10-01 11:13 | GCON ---
[f rep st] CONSULTATION DATE OF CONSULTATION: 10/01/2016 CHIEF COMPLAINT: Melena. I am asked to see this patient in consultation by Dr. Malik for the chief complaint of melena. HISTORY OF PRESENT ILLNESS: Patient is an 81-year-old known to our practice, just underwent a scree ronald colonoscopy by my partner, Dr. Peacock, in July 2016 which was essentially normal. Underwent a cardiac stent placement 6 weeks ago, placed on aspirin and Plavix, and did well until Sunday when he noted the onset of a black melenic stool. He then had one 2nd one yesterday that was large, hazel k and melenic. He was noting increasing shortness of breath which he thought was from his hypothyro idism, and presented to the emergency room where he was found to have a decrease in hematocrit and m elenic stools. The patient has a remote history of peptic ulcer disease in 2001, did have a repeat scope that showed healing of his ulcers. With this episode, he has had no nausea and vomiting. No hematemesis. No reflux symptoms. No dysphagia. No significant abdominal pain. Family history is notable for a duodenal ulcer in his dad. He has had no chest pain since stent placement. ALLERGIES: Oxycodone. CURRENT MEDICATIONS: He is on albuterol, Lipitor, Coreg, Advair, Zestril, pantoprazole, Singulair, tramadol, and trazodone. PAST MEDICAL HISTORY: Notable for circumflex artery stent placed August 23, 2016, hypothyroidism, wi th a heart block with pacemaker, remote history of peptic ulcer disease. FAMILY HISTORY: Notable for ulcer in his father. SOCIAL HISTORY: Patient denies alcohol use. REVIEW OF SYSTEMS: I have performed a complete review of systems which is negative except for perti nent positives and negatives noted in the HPI above. PHYSICAL EXAMINATION: VITAL SIGNS: The patient is afebrile at 36.9, BP 115/60, pulse 61. CONSTITU TIONAL: The patient is alert and oriented. EYES: There is no scleral icterus. HEENT: No oral le sions. CARDIOVASCULAR: Regular rate and rhythm. CHEST: Clear to auscultation. ABDOMEN: Positiv e bowel sounds. Soft and nontender. No hepatosplenomegaly. NEUROLOGIC: Nonfocal. SKIN: No rash es. LABORATORY DATA: Notable for hematocrit of 25.3 on admission with platelets of 132, and white count 6.2. This morning his hematocrit had dropped to 19 with platelets low at 78, and white count of 3. He has received a unit of blood. BUN and creatinine are elevated at 62 and 1.2, and his TSH is al so elevated at 54. Pro time is normal at 15.3. ASSESSMENT: Patient with melena in the setting with an elevated BUN to creatinine, strongly suggest s upper gastrointestinal bleed with the presence of aspirin and Plavix. Most likely has ulcer disea se of either stomach or small bowel, and a significant drop in hematocrit. Recommend urgent upper e ndoscopy. The patient overall would be high risk because of his age, his sleep apnea, and recent ca rdiac stent. We will ask for assistance of anesthesiology for this procedure. PLAN: Will proceed with upper endoscopy for evaluation and potential treatment for upper GI bleedin g. If clear source is not identified, may need to consider repeat colonoscopy, but I think that is less likely. Will aim to get him back on his antiplatelet treatment as soon as possible as guided b y endoscopic findings, and most likely we will treat with pantoprazole if peptic issue is identified to minimize interaction with Plavix. Further recommendations to follow. Thank you for this consult. /[id number]/MODL
--- NOTE | 2016-10-01 11:35 | SUROPNOTE ---
[facility] Operative Report - Surgery EGD full note dictated Multiple Jamil Large DU with VV clipped x 3 A/ High risk lesion with DU with VV treated p/ PPI IV Monitor H+H Hold plavix and ASA at least 24- 48 hours until clear no rebleeding Recommend IR if rebleeding due to large VV OK for clear liq diet
--- NOTE | 2016-10-01 12:29 | GPN ---
[f rep st] PROCEDURE NOTE DATE OF PROCEDURE: 10/01/2016 PROCEDURE PERFORMED: Upper endoscopy with hemostasis. Use of the Olympus video gastroscope. MEDICINES GIVEN: Anesthesia care per the anesthesiologist. INDICATIONS: Patient is an 81-year-old status post recent stent with melena and decline in hematocr it. Referred for upper endoscopy. Prior to procedure, exam was performed including auscultation of the heart and lungs which were within normal limits. Patient's mental status was appropriate. Pro cedure was explained, including the risks of bleeding, perforation, or effects of sedation. He gave his informed consent. DESCRIPTION OF PROCEDURE: The patient was placed in the left lateral decubitus position. Medicines were given by the anesthesiologist. Instruments inserted via the bite block in the esophagus. Eso phagus appeared normal without varices. Scope passed to the stomach. There was no old blood or act matilde bleeding, but there were multiple long, linear erosions and multiple small gastric ulcers involv ing the antrum and involving the pyloric channel, but no visible vessels or active bleeding. Retrof lexion was normal. No Anne-Cui tear. Biopsies were taken of the ulcer in the antrum and then the scope was then passed into the duodenum which revealed a single large posterior duodenal ulcer w ith a visible vessel with just minimal oozing. Clip was applied x3, transecting both sides of the v essel, with hemostasis achieved, although of note, position was difficult because of a very short bu lb and minimal room endoscopically to maneuver. The scope was then removed from the patient who sammie erated the procedure well. Time of procedure was approximately 30 minutes. ASSESSMENT: 1. Bleeding from high-risk lesion in the duodenum with a duodenal ulcer with visible vessel. This was treated with hemoclips x3 with hemostasis. However, its location and vessel would put it at hig h risk. I think we should monitor patient closely for any evidence of rebleeding over the next 24-4 8 hours. 2. Multiple gastric ulcers and erosions. Suspect NSAIDS, although patient having a remote history of ulcers. Consider Helicobacter pylori. These lesions were not bleeding. PLAN: PPI IV for now. Continue to monitor H and H. okay for clear liquids, but will need to monit or closely for any evidence of rebleeding. Should patient have evidence of rebleeding or hemodynami c compromise, then our next step would be to do IR embolization, because I do not feel that further endoscopic therapy can be any more effective given this lesion (see above). If he does well, then c an look to restart his aspirin and Plavix. Hope to delay at least 24-48 hours. Then would recommen d patient go to a proton pump inhibitor such as pantoprazole. In theory, would have less interactio n with the Plavix. He should be on pantoprazole daily for 12 weeks. I would give consideration to a repeat upper endoscopy in 3 months to confirm healing of his gastric ulcers. Will await biopsy fo r Helicobacter pylori. Thanks for this consult. /[id number]/MODL
[2016-10-01 12:31] LABS: HEMATOCRIT 23.1 % (40.0-51.0); HEMOGLOBIN 7.5 g/dL (13.7-17.5)
--- NOTE | 2016-10-01 13:41 | WOCRNPDOC ---
WOCRN Advanced Assessment Note - Skin Integrity Problem, Advanced Assess Right Gluteal Cleft Dressing Type: Allevyn Life Dressing Description: Clean/Dry, Intact Exudate Amount: Scant Exudate Color: Reddish/Yellow Exudate Characteristic(s): Serosanguinous Integumentary Issue Intervention: Dressing Removed, Barrier Cream Applied ( supplied RUMA ambriz/ Treva Bermudez ) Taylor Wound Tissue: Blanching, Erythema, Denuded Taylor Wound Swelling: None Wound Bed Color: [place], Red Wound Edges: Irregular Site Odor: None Site Measurement - Head-to-Toe Length X Width X Depth (cm): 2.9cmx1.8cmx0.1cm Skin Integrity Problem Comment: Area of raw, denuded skin noted on R gluteal cleft (where it meets the left buttock), consistent in appearance w/ moisture/ friction-associated injury. Because this is over a fleshy area of the buttock, I do not think this wound is pressure related. Presently, there is pink, new epithelium medially, surrounded by friable, peeling tissue. All of this is blanching, along with taylor-wound skin as well. Supplied edger technician Anna w/ Treva Bermudez skin protectant, to be applied daily and PRN.
--- NOTE | 2016-10-01 14:14 | HOSPPROG ---
Hospitalist Progress Note Assessment/Plan: 81-y/o M with PMH CAD with PCI to LCx 08/23, htn, hyperthyroidism with recent thyrotoxicosis, ppm 2/2 high grade heart block, chronic edema,mild started to note worsening shortness of breath and thought this may be related to his thyroid dysfunction. However, he had bout of melena yesterday. #. acute ABL anemia: follow H/H already has had 1 unit PRBC transfusion but may require more Plavix/ASA on hold #. UGIB: found to have bleed from vessel in duodenum s/p hemoclips x 3 multiple gastric erosions informed him to avoid NSAIDs on IV PPI #. hyperthyroidism: followed by Dr. David Gil will need further reduction of dose of Methimazole which is currently on hold #. chronic edema: Lasix on hold edema is minimal (ankle) #. htn: BP stable #. CAD: recent PCI 09/01 Plavix/ASA on hold alerted Dr. Payne of patient's admission #. DVT ppx: high risk/ however chemoppx contraindicated in setting of recent GIB plan for mechanical ppx #. Diet: on clears #. Full code Subjective: Reports no dyspnea at rest. Edema stable. Has not had further melena since admission. No cp. Objective: Vital Signs Temp Pulse Resp BP Pulse Ox 97.5 F 60 16 137/70 H 100 10/01/16 12:00 10/01/16 12:00 10/01/16 12:00 10/01/16 12:00 10/01/16 12:00 Laboratory Results 10/01/16 12:23 10/01/16 04:15 09/30/16 10/01/16 10/02/16 05:59 05:59 05:59 Intake Total 1200 200 Output Total 5 Balance 1200 195 PT 15.3 SEC (12.0-15.0) H 09/30/16 16:39 INR 1.21 (0.83-1.16) H 09/30/16 16:39 - Physical Exam Constitutional: no apparent distress, appears nourished Eyes: pale conjunctiva Ears, Nose, Mouth, Throat: moist mucous membranes Cardiovascular: regular rate and rhythym, systolic murmur Respiratory: no respiratory distress, no rales or rhonchi Gastrointestinal: normoactive bowel sounds, soft, non-tender abdomen Genitourinary: No mccray in urethra Skin: warm, No erythema, No fluctuance Neurologic: AAOx3 Psychiatric: interacting appropriately, not anxious ICD10 Worksheet Patient Problems: Problems Problem Status Onset Upper GI bleed Acute CAD (coronary artery disease), [place] coronary artery Acute CAD (coronary artery disease), [place] coronary artery Acute Acute renal failure Acute Hypovolemia Acute
[2016-10-01 19:38] LABS: HEMATOCRIT 23.6 % (40.0-51.0); HEMOGLOBIN 7.5 g/dL (13.7-17.5)
[2016-10-01] MEDS: MONTELUKAST SODIUM 10 MG TAB PO SCH (20:10)
[2016-10-02 04:49] LABS: % IMMATURE GRANULYOCYTES 0.3 % (0.0-1.1); ABSOLUTE IMMATURE GRANULOCYTES 0.01 10^3/uL (0.00-0.10); ADD DIFF? NO; ADD MORPH? NO; ADD SCAN? NO; ATYPICAL LYMPHOCYTE FLAG 40 (0-99); FRAGMENT RBC FLAG 0 (0-99); HEMATOCRIT 22.9 % (40.0-51.0); HEMOGLOBIN 7.4 g/dL (13.7-17.5); LEFT SHIFT FLG 0 (0-99); LIPEMIA HEMOLYSIS FLAG 80 (0-99); MEAN CELL HEMOGLOBIN 30.3 pg (27.9-34.1); MEAN CELL HEMOGLOBIN CONCENTR. 32.3 g/dL (32.4-36.7); MEAN CELL VOLUME 93.9 fL (81.5-99.8); MEAN PLATELET VOLUME 10.8 fL (8.7-11.7); PLATELET CLUMPS FLAG 10 (0-99); PLATELET COUNT 90 10^3/uL (150-400); RED BLOOD CELL COUNT 2.44 10^6/uL (4.40-6.38); RED CELL DISTRIBUTION WIDTH 16.9 % (11.5-15.2)
[2016-10-02 05:38] LABS: ANION GAP 5 mEq/L (8-16); CALCIUM 8.8 mg/dL (8.5-10.4); CARBON DIOXIDE 21 mEq/l (22-31); CHLORIDE 115 mEq/L (97-110); GLOMERULAR FILTRATION RATE > 60; GLUCOSE 75 mg/dL (70-100); POTASSIUM 3.8 mEq/L (3.5-5.2); SODIUM 141 mEq/L (134-144)
--- NOTE | 2016-10-02 07:50 | HOSPPROG ---
Hospitalist Progress Note Assessment/Plan: 81-y/o M with PMH CAD with PCI to LCx 08/23, htn, hyperthyroidism with recent thyrotoxicosis, ppm 2/2 high grade heart block, chronic edema,mild started to note worsening shortness of breath and thought this may be related to his thyroid dysfunction. He had a bout of melena. Was noted to have a UGIB. Today is my first encounter with the patient/ chart reviewed. #. acute ABL anemia: follow H/H 1 unit PRBC was given, will give another unit in the setting of CAD Plavix/ASA on hold #. UGIB: found to have bleed from vessel in duodenum s/p hemoclips x 3 multiple gastric erosions avoid NSAIDs on IV PPI #. hyperthyroidism/no hypothyroid with a TSH of 54 : followed by Dr. David Gil will need further reduction of dose of Methimazole/contacted Dr Gil and he recommended resuming 50% he will need f/u appt w Dr gil #. chronic edema: Lasix on hold edema is minimal (ankle) #. htn: BP stable #. CAD: recent PCI 09/01 Plavix/ASA on hold spoke with cardiology/ they will review chart and get back to me #. DVT ppx: high risk/ however chemoppx contraindicated in setting of recent GIB mechanical ppx #. Diet: on clears #. Plan: transfuse another unit of prbc's. Plan of care discussed w patient x his daughter. Will need another midnight stay for close monitoring. Appreciate cardiology involvement. Subjective: Jed is feeling well overall. Objective: Vital Signs Temp Pulse Resp BP Pulse Ox 36.8 C 60 16 130/69 H 95 10/02/16 03:46 10/02/16 03:46 10/02/16 03:46 10/02/16 03:46 10/02/16 03:46 Laboratory Results 10/02/16 04:13 10/02/16 04:13 10/01/16 10/02/16 10/03/16 05:59 05:59 05:59 Intake Total 200 Output Total 200 Balance 0 PT 15.3 SEC (12.0-15.0) H 09/30/16 16:39 INR 1.21 (0.83-1.16) H 09/30/16 16:39 - Physical Exam Constitutional: no apparent distress, appears nourished, not in pain Eyes: PERRL Ears, Nose, Mouth, Throat: hearing normal Cardiovascular: regular rate and rhythym Respiratory: no respiratory distress Gastrointestinal: normoactive bowel sounds Skin: warm, No normal color (pale) Musculoskeletal: no muscle tenderness Neurologic: AAOx3 Psychiatric: interacting appropriately, not anxious ICD10 Worksheet Patient Problems: Problems Problem Status Onset Upper GI bleed Acute Acute renal failure Acute CAD (coronary artery disease), [place] coronary artery Acute CAD (coronary artery disease), [place] coronary artery Acute Hypovolemia Acute
[2016-10-02] MEDS: FLUTICASONE/SALMETER 250/50MCG DISKUS IH SCH ×2 (09:03→21:01)
[2016-10-02] MEDS: CARVEDILOL 6.25 MG TAB PO SCH ×2 (09:18→19:14)
[2016-10-02] MEDS: ATORVASTATIN CALCIUM 40 MG TAB PO SCH (09:19)
[2016-10-02] MEDS: LISINOPRIL 10 MG TAB PO SCH (09:19)
[2016-10-02] MEDS: PANTOPRAZOLE SODIUM 40 MG in NS 100 ML IV SCH ×2 (09:19→21:00)
[2016-10-02] MEDS: AZELASTINE HCL 0.1% EACHNARE SCH ×2 (09:31→20:49)
[2016-10-02] MEDS ORDERED: ACETAMINOPHEN 325 MG TAB PO ONE (10:00)
--- NOTE | 2016-10-02 11:43 | SOAPPROG ---
SOAP Progress Note Assessment/Plan: Assessment: UGIB from DU with VV s/p clip also with several shallow Jamil. Pt with no further melena since admission and suspect bleeding has stopped. Some decline in H+H this AM likely from equilibration. Due to significant DU recommend monitor another 24 hours on IV PPI today. Discussed with pt may pass melena for 3 days. Plan: Continue PPI IV today Agree with blood transfusion and monitor H+H OK to restart anti-PLT therapy per cardiology Await gastric biopsy to assess for H. Pylori but suspect ulcers from ASA therefore recommend gastric protective medication (protonix). Avoid all other NSAIDS except ASA OK to advance diet IR if rebleeds 10/02/16 11:38 Subjective: UGIB No melena no BM today. Feels better Objective: Vital Signs Temp Pulse Resp BP Pulse Ox 36.5 C 62 16 126/67 H 95 10/02/16 08:00 10/02/16 08:00 10/02/16 08:00 10/02/16 08:00 10/02/16 08:00 Laboratory Results 10/02/16 04:13 10/02/16 04:13 10/01/16 10/02/16 10/03/16 05:59 05:59 05:59 Intake Total 200 Output Total 200 Balance 0 PT 15.3 SEC (12.0-15.0) H 09/30/16 16:39 INR 1.21 (0.83-1.16) H 09/30/16 16:39 Physical Exam - Physical Exam General Appearance: WD/WN, alert Respiratory: lungs clear Cardiac/Chest: regular rate, rhythm Abdomen: non-tender, soft ICD10 Worksheet Patient Problems: Problems Problem Status Onset Upper GI bleed Acute Acute renal failure Acute CAD (coronary artery disease), [place] coronary artery Acute CAD (coronary artery disease), [place] coronary artery Acute Hypovolemia Acute
[2016-10-02] MEDS: Guanfacine Hcl [Guanfacine Hcl Er] 1 MG PO SCH (12:56)
--- NOTE | 2016-10-02 15:54 | SOAPPROG ---
SOAP Progress Note Assessment/Plan: Assessment: 1. Coronary artery disease with PCI and stenting of the [place] circumflex in early August 2016. 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 3. Systemic hypertension. 4. Mild aortic stenosis. 5. Chronic bipedal edema. 6. Obstructive sleep apnea. 7. Current admission with an upper GI bleed associated with objective findings of peptic ulcer disease. Presently he appears to be stable. In reviewing the EGD notes and recommendations from gastroenterology it is thought that he would be a candidate to restart his aspirin and Plavix tomorrow. He has been placed on proton pump inhibitor therapy which certainly will help mitigate future risk for bleeding. At this point, I do not feel comfortable switching him to single anti-platelet therapy. This may be something that we could consider after a total of 3 months dual anti-platelet therapy. Plan: At the present time, I agree with holding his dual anti-platelet therapy for 24- 48 hours. This can be reinstituted prior to hospital discharge used in conjunction proton pump inhibitor therapy. He will be followed carefully as an outpatient although I anticipate that he will do well. Please re-consult us if needed. 10/02/16 15:54 Subjective: The patient was seen and examined. His chart was reviewed. He is known to me from my outpatient clinic. His cardiovascular history is significant for mild aortic stenosis, sick sinus syndrome with previous pacemaker placement, coronary disease with PCI and stenting of the circumflex in an elective fashion in early August of this year, hypertension, chronic mild pulmonary hypertension, obstructive sleep apnea and episodes of SVT. As an outpatient, since his PCI and stenting in early August, he has been treated with dual anti-platelet therapy consisting of aspirin and Plavix. He has never had a GI bleed before. He was admitted to the hospital on Sunday. That time he was complaining of symptoms of exertional dyspnea which came on over the last several days. He had a bowel movement that same day and noted that it was very black. As a result he came to the emergency department where he was found to be anemic and was diagnosed with an upper GI bleed. He is currently receiving his 2nd unit of packed red blood cells. GI performed endoscopy which demonstrated peptic ulcer disease. These were treated cautery. He states he has been doing a little bit better since receiving blood. Shortness of breath has now resolved. His dual anti-platelet therapy was discontinued at the time of his hospitalization. Objective: Vital Signs Temp Pulse Resp BP Pulse Ox 36.5 C 58 L 14 129/73 H 93 10/02/16 15:08 10/02/16 15:08 10/02/16 15:08 10/02/16 15:08 10/02/16 15:08 Laboratory Results 10/02/16 04:13 10/02/16 04:13 10/01/16 10/02/16 10/03/16 05:59 05:59 05:59 Intake Total 200 Output Total 200 Balance 0 PT 15.3 SEC (12.0-15.0) H 09/30/16 16:39 INR 1.21 (0.83-1.16) H 09/30/16 16:39 Physical Exam - Physical Exam General Appearance: WD/WN, no apparent distress Neck: non-tender, full range of motion Respiratory: lungs clear Cardiac/Chest: regular rate, rhythm, edema (He has chronic 1+ pedal edema), No gallop, No JVD Peripheral Pulses: 2+: carotid (R), carotid (L) ICD10 Worksheet Patient Problems: Problems Problem Status Onset Upper GI bleed Acute Acute renal failure Acute CAD (coronary artery disease), [place] coronary artery Acute CAD (coronary artery disease), [place] coronary artery Acute Hypovolemia Acute
[2016-10-02] MEDS: MONTELUKAST SODIUM 10 MG TAB PO SCH (20:49)
[2016-10-02] MEDS: traZODone 50 MG TAB PO PRN (20:49)
[2016-10-02] MEDS: ALBUTEROL 200 PUFFS/18 GM MDI IH PRN (20:49)
[2016-10-03 05:04] LABS: % IMMATURE GRANULYOCYTES 0.5 % (0.0-1.1); ABSOLUTE IMMATURE GRANULOCYTES 0.02 10^3/uL (0.00-0.10); ADD DIFF? NO; ADD MORPH? NO; ADD SCAN? NO; ATYPICAL LYMPHOCYTE FLAG 0 (0-99); FRAGMENT RBC FLAG 0 (0-99); HEMATOCRIT 25.3 % (40.0-51.0); HEMOGLOBIN 8.3 g/dL (13.7-17.5); LEFT SHIFT FLG 0 (0-99); LIPEMIA HEMOLYSIS FLAG 80 (0-99); MEAN CELL HEMOGLOBIN 31.3 pg (27.9-34.1); MEAN CELL HEMOGLOBIN CONCENTR. 32.8 g/dL (32.4-36.7); MEAN CELL VOLUME 95.5 fL (81.5-99.8); MEAN PLATELET VOLUME 10.9 fL (8.7-11.7); PLATELET CLUMPS FLAG 0 (0-99); PLATELET COUNT 89 10^3/uL (150-400); RED BLOOD CELL COUNT 2.65 10^6/uL (4.40-6.38); RED CELL DISTRIBUTION WIDTH 16.7 % (11.5-15.2)
[2016-10-03 05:28] LABS: ANION GAP 6 mEq/L (8-16); CALCIUM 8.8 mg/dL (8.5-10.4); CARBON DIOXIDE 23 mEq/l (22-31); CHLORIDE 114 mEq/L (97-110); CREATININE 1.1 mg/dL (0.7-1.3); GLOMERULAR FILTRATION RATE > 60; GLUCOSE 81 mg/dL (70-100); POTASSIUM 3.9 mEq/L (3.5-5.2); SODIUM 143 mEq/L (134-144)
[2016-10-03] MEDS: CLOPIDOGREL BISULFATE 75 MG TAB PO SCH (08:58)
[2016-10-03] MEDS: PANTOPRAZOLE SODIUM 40 MG in NS 100 ML IV SCH (08:58)
[2016-10-03] MEDS: ATORVASTATIN CALCIUM 40 MG TAB PO SCH (08:59)
[2016-10-03] MEDS: LISINOPRIL 10 MG TAB PO SCH (08:59)
[2016-10-03] MEDS: CARVEDILOL 6.25 MG TAB PO SCH ×2 (08:59→17:48)
[2016-10-03] MEDS: AZELASTINE HCL 0.1% EACHNARE SCH ×2 (08:59→20:15)
[2016-10-03] MEDS: ALBUTEROL 200 PUFFS/18 GM MDI IH PRN ×2 (09:00→20:15)
--- NOTE | 2016-10-03 09:00 | HOSPPROG ---
Hospitalist Progress Note Assessment/Plan: 81-y/o M with PMH CAD with PCI to LCx 08/23, htn, hyperthyroidism with recent thyrotoxicosis, ppm 2/2 high grade heart block, chronic edema,mild started to note worsening shortness of breath and thought this may be related to his thyroid dysfunction. He had a bout of melena. Was noted to have a UGIB. #. acute ABL anemia: follow H/H total of 2 units of prbc's were given h/h overall stable resumed asa and Plavix/ reviewed Dr Payne and Dr Langley notes will have him monitored closely in OP setting #. UGIB: found to have bleed from vessel in duodenum s/p hemoclips x 3 multiple gastric erosions avoid NSAIDs on IV PPI #.Thrombocytopenia will have this rechecked in OP setting #. hyperthyroidism/no hypothyroid with a TSH of 54 : followed by Dr. David Gil will need further reduction of dose of Methimazole/contacted Dr Gil and he recommended resuming 50% he will need f/u appt w Dr gil #. chronic edema: Lasix on hold edema is minimal (ankle) #. htn: BP stable #. CAD: recent PCI 09/01 Plavix/ASA on hold spoke with cardiology/ they will review chart and get back to me #. DVT ppx: high risk/ however chemoppx contraindicated in setting of recent GIB mechanical ppx #. Diet: on reg #. Plan: will restart asa and Plavix/ poss dc later today or tomorrow morning Subjective: Jed is feeling well today. Objective: Vital Signs Temp Pulse Resp BP Pulse Ox 36.7 C 61 16 119/61 93 10/03/16 07:30 10/03/16 07:30 10/03/16 07:30 10/03/16 07:30 10/03/16 07:30 Laboratory Results 10/03/16 04:16 10/03/16 04:16 10/02/16 10/03/16 10/04/16 05:59 05:59 05:59 Intake Total 200 600 Output Total 200 Balance 0 600 PT 15.3 SEC (12.0-15.0) H 09/30/16 16:39 INR 1.21 (0.83-1.16) H 09/30/16 16:39 - Physical Exam Constitutional: no apparent distress, appears nourished, not in pain Eyes: PERRL Ears, Nose, Mouth, Throat: hearing normal Cardiovascular: regular rate and rhythym Respiratory: no respiratory distress, no rales or rhonchi Gastrointestinal: normoactive bowel sounds, soft, non-tender abdomen Skin: warm, No normal color (pale but overall less pale than yesterday) Musculoskeletal: no muscle tenderness Neurologic: AAOx3 Psychiatric: interacting appropriately ICD10 Worksheet Patient Problems: Problems Problem Status Onset Upper GI bleed Acute Acute renal failure Acute CAD (coronary artery disease), [place] coronary artery Acute CAD (coronary artery disease), [place] coronary artery Acute Hypovolemia Acute
[2016-10-03] MEDS: FLUTICASONE/SALMETER 250/50MCG DISKUS IH SCH ×2 (09:54→21:29)
[2016-10-03] MEDS: ASPIRIN 81 MG CHEWABLE TAB PO SCH (10:24)
[2016-10-03] MEDS: Guanfacine Hcl [Guanfacine Hcl Er] 1 MG PO SCH (10:25)
--- NOTE | 2016-10-03 13:26 | SOAPPROG ---
SOAP Progress Note Assessment/Plan: Assessment: UGIB from DU with VV s/p clip also with several shallow Jamil. No e/o rebleeding. Pt with no further melena since admission and suspect bleeding has stopped. H +H better post transfusion yesterday Discussed with pt may pass melena for 3 days. Plan: Pt to restart antiplatelet therapy today Change to PO PPI Monitor H+H until stable Recommend repeat EGD in 3 months as outpt my office to arrange IR if rebleeds will sign off for now 10/03/16 13:23 Subjective: CC UGIB No BM today feels better Objective: Vital Signs Temp Pulse Resp BP Pulse Ox 36.7 C 59 L 20 142/73 H 96 10/03/16 11:48 10/03/16 11:48 10/03/16 11:48 10/03/16 11:48 10/03/16 11:48 Laboratory Results 10/03/16 04:16 10/03/16 04:16 10/02/16 10/03/16 10/04/16 05:59 05:59 05:59 Intake Total 200 600 Output Total 200 200 Balance 0 600 -200 PT 15.3 SEC (12.0-15.0) H 09/30/16 16:39 INR 1.21 (0.83-1.16) H 09/30/16 16:39 Physical Exam - Physical Exam General Appearance: no apparent distress Respiratory: lungs clear, normal breath sounds Cardiac/Chest: regular rate, rhythm Abdomen: non-tender, soft ICD10 Worksheet Patient Problems: Problems Problem Status Onset Upper GI bleed Acute Acute renal failure Acute CAD (coronary artery disease), [place] coronary artery Acute CAD (coronary artery disease), [place] coronary artery Acute Hypovolemia Acute
[2016-10-03] MEDS ORDERED: PANTOPRAZOLE SODIUM 40 MG TAB PO SCH ×2 (13:30→18:00)
--- NOTE | 2016-10-03 14:02 | SOAPPROG ---
[facility] Progress Note Assessment/Plan: Assessment: 1. Coronary artery disease with PCI and stenting of the [place] circumflex in early August 2016. 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 3. Systemic hypertension. 4. Mild aortic stenosis. 5. Chronic bipedal edema. 6. Obstructive sleep apnea. 7. Current admission with an upper GI bleed associated with objective findings of peptic ulcer disease. He appears to be doing well at the present time. There is no indication of recurrent bleeding. He has not complained of any chest discomfort or chest pain. Plan: 1. Agree with restarting dual antiplatelet therapy as well as PPI therapy. 2. Will be monitored for evidence of recurrent bleeding. 3. I will sign off for now. 4. Please have him follow-up with me 2-3 weeks after hospital discharge. 10/03/16 14:01 Subjective: He states he feels well today. Has no complaints of chest discomfort or breathlessness. He went for a walk around the [place] without any difficulties. He notes that he has not had a bowel movement. His dual anti-platelet therapy was restarted. Objective: Vital Signs Temp Pulse Resp BP Pulse Ox 36.7 C 59 L 20 142/73 H 96 10/03/16 11:48 10/03/16 11:48 10/03/16 11:48 10/03/16 11:48 10/03/16 11:48 Laboratory Results 10/03/16 04:16 10/03/16 04:16 10/02/16 10/03/16 10/04/16 05:59 05:59 05:59 Intake Total 200 600 Output Total 200 200 Balance 0 600 -200 PT 15.3 SEC (12.0-15.0) H 09/30/16 16:39 INR 1.21 (0.83-1.16) H 09/30/16 16:39 Physical Exam - Physical Exam General Appearance: WD/WN, no apparent distress Neck: non-tender Respiratory: chest non-tender, lungs clear Cardiac/Chest: regular rate, rhythm, edema (mild), No gallop, No JVD Peripheral Pulses: 2+: carotid (R), carotid (L) ICD10 Worksheet Patient Problems: Problems Problem Status Onset Upper GI bleed Acute Acute renal failure Acute CAD (coronary artery disease), [place] coronary artery Acute CAD (coronary artery disease), [place] coronary artery Acute Hypovolemia Acute
[2016-10-03] MEDS: MONTELUKAST SODIUM 10 MG TAB PO SCH (20:18)
[2016-10-03] MEDS: traZODone 50 MG TAB PO PRN (20:18)
[2016-10-04 05:30] LABS: % IMMATURE GRANULYOCYTES 0.2 % (0.0-1.1); ABSOLUTE IMMATURE GRANULOCYTES 0.01 10^3/uL (0.00-0.10); ADD DIFF? NO; ADD MORPH? NO; ADD SCAN? NO; ATYPICAL LYMPHOCYTE FLAG 70 (0-99); FRAGMENT RBC FLAG 0 (0-99); HEMATOCRIT 26.5 % (40.0-51.0); HEMOGLOBIN 8.5 g/dL (13.7-17.5); LEFT SHIFT FLG 0 (0-99); LIPEMIA HEMOLYSIS FLAG 80 (0-99); MEAN CELL HEMOGLOBIN 30.8 pg (27.9-34.1); MEAN CELL HEMOGLOBIN CONCENTR. 32.1 g/dL (32.4-36.7); MEAN PLATELET VOLUME 11.1 fL (8.7-11.7); PLATELET CLUMPS FLAG 0 (0-99); PLATELET COUNT 110 10^3/uL (150-400); RED BLOOD CELL COUNT 2.76 10^6/uL (4.40-6.38)
[2016-10-04 07:50] VITALS: BP 121/82; PULSE 62; RESP 18; TEMP 98.3; O2SAT 96
[2016-10-04] MEDS: AZELASTINE HCL 0.1% EACHNARE SCH (08:04)
[2016-10-04] MEDS: ALBUTEROL 200 PUFFS/18 GM MDI IH PRN (08:04)
[2016-10-04] MEDS: ATORVASTATIN CALCIUM 40 MG TAB PO SCH (08:05)
[2016-10-04] MEDS: CLOPIDOGREL BISULFATE 75 MG TAB PO SCH (08:05)
[2016-10-04] MEDS: LISINOPRIL 10 MG TAB PO SCH (08:05)
[2016-10-04] MEDS: CARVEDILOL 6.25 MG TAB PO SCH (08:05)
[2016-10-04] MEDS: ASPIRIN 81 MG CHEWABLE TAB PO SCH (08:05)
--- NOTE | 2016-10-04 09:03 | HOSPPROG ---
Hospitalist Progress Note Assessment/Plan: 81-y/o M with PMH CAD with PCI to LCx 08/23, htn, hyperthyroidism with recent thyrotoxicosis, ppm 2/2 high grade heart block, chronic edema,mild started to note worsening shortness of breath and thought this may be related to his thyroid dysfunction. He had a bout of melena. Was noted to have a UGIB. #. acute ABL anemia: follow H/H total of 2 units of prbc's were given h/h overall stable resumed asa and Plavix #. UGIB: found to have bleed from vessel in duodenum s/p hemoclips x 3 multiple gastric erosions avoid NSAIDs on po PPI #.Thrombocytopenia will have this rechecked in OP setting #. hyperthyroidism/no hypothyroid with a TSH of 54 : followed by Dr. David Gil will need further reduction of dose of Methimazole/contacted Dr Gil and he recommended resuming 50% he will need f/u appt w Dr gil #. chronic edema: Lasix on hold edema is minimal (ankle) #. htn: BP stable #. CAD: recent PCI 09/01 Plavix/ASA on hold spoke with cardiology/ they will review chart and get back to me #. DVT ppx: high risk/ however chemoppx contraindicated in setting of recent GIB mechanical ppx #. Diet: on reg #. Plan: dc today Subjective: Jed is feeling well/ no complaints. Objective: Vital Signs Temp Pulse Resp BP Pulse Ox 36.8 C 62 18 121/82 H 96 10/04/16 07:47 10/04/16 07:47 10/04/16 07:47 10/04/16 07:47 10/04/16 07:47 Laboratory Results 10/04/16 04:21 10/03/16 04:16 10/03/16 10/04/16 10/05/16 05:59 05:59 05:59 Intake Total 600 600 Output Total 200 Balance 600 400 PT 15.3 SEC (12.0-15.0) H 09/30/16 16:39 INR 1.21 (0.83-1.16) H 09/30/16 16:39 - Physical Exam Constitutional: no apparent distress, appears nourished, not in pain Eyes: PERRL Ears, Nose, Mouth, Throat: hearing normal Respiratory: no respiratory distress Gastrointestinal: normoactive bowel sounds Skin: warm Musculoskeletal: full muscle strength, no muscle tenderness Neurologic: AAOx3 Psychiatric: interacting appropriately ICD10 Worksheet Patient Problems: Problems Problem Status Onset Upper GI bleed Acute Acute renal failure Acute CAD (coronary artery disease), [place] coronary artery Acute CAD (coronary artery disease), [place] coronary artery Acute Hypovolemia Acute
[2016-10-04] MEDS: FLUTICASONE/SALMETER 250/50MCG DISKUS IH SCH (09:17)
[2016-10-04] MEDS ORDERED: PANTOPRAZOLE SODIUM 40 MG TAB PO ONE (09:21)
--- NOTE | 2016-10-04 10:03 | GDS ---
[f rep st] DISCHARGE SUMMARY DISCHARGE DIAGNOSES: 1. Acute blood loss anemia. 2. Upper gastrointestinal bleed. 3. Thrombocytopenia. 4. Hyperthyroidism. 5. Chronic edema. 6. Hypertension. 7. Coronary artery disease with a recent PCI on 08/2016. CONSULTATIONS: 1. Dr. Ashleigh Langley. 2. Dr. Ben Payne. BRIEF SUMMARY: The patient is a very nice 81-year-old male who had a stent to his circumflex artery in August 2016, for which he is on aspirin and Plavix. He presented to the hospital with 1 day of shortness of breath, which he noticed while he was on his treadmill. He also noted that he started to have black stools. He thought this was related to his elevated TSH. He has a history of hyperthyroidism with over-suppressed thyroid function with a high TSH. He was admitted and noted to have an upper GI bleed. He was seen and evaluated by Dr. Langley, and on 10/01 he had an upper endoscopy. It noted that he had bleeding with a high-risk lesion in the duodenum with a duodenal ulcer with visible vessel. It was treated with hemoclips x3 with hemostasis. Due to its location, he is at high risk. He was monitored for any type of rebleeding. He was given PPI IV. In addition, he was transfused 2 units of packed red blood cells. Today, he is stable. He will follow up with Dr. Langley and with Dr. Madhu Payne in the outpatient setting. In addition, he will follow up with Dr. David Gil. HOSPITAL COURSE: 1. Acute blood loss anemia. He was given a total of 2 units of packed red blood cells. His Plavix and aspirin were resumed yesterday. His H and H have stayed stable. 2. Upper GI bleed. He was found to have a bleed from a vessel in the duodenum , status post hemoclips x3. He is to avoid NSAIDs. He will be on a PPI b.i.d. 3. Thrombocytopenia. I suspect this is secondary from bleeding. This is improved. 4. Hyperthyroidism. His TSH is 54. He will take half of his dose of his methimazole and follow up with Dr. Gil. 5. Chronic edema, stable. 6. Hypertension. Blood pressure is stable. 7. Coronary artery disease. He will follow up with Dr. Payne in the outpatient setting. Plavix and aspirin have been resumed. PENDING LABS AND TESTS: His surgical specimen from the EGD is pending. CONDITION ON DISCHARGE: Stable. Blood pressure is 121/82. Heart rate is 62. Respiratory rate is 18. O2 sats on room air are 96%. Temp is 36.8 Celsius. DISCHARGE MEDICATIONS: Please see the EMR. DISCHARGE INSTRUCTIONS: 1. To follow up with his primary care provider and get a repeat H and H next week. 2. To follow up with Dr. Langley. He will get a repeat EGD in 3 months. 3. Take the PPI b.i.d. x4 weeks, then daily. 4. To follow up with Dr. Payne in regard to his stent and staying on the Plavix and aspirin. 5. See Dr Gil within the next two weeks. Greater than 30 minutes discharging and coordinating care. /[id number]/MODL MTDD
[2016-10-04] MEDS: Guanfacine Hcl [Guanfacine Hcl Er] 1 MG PO SCH (11:31)
== END 2016-10-04 11:42 | disposition home or self-care (01) | DRG 378 ==
LOC: INTOOBSV 17:12 → F3E 18:42 → OBSVTOIN 10-01 14:23
PROVIDERS: ADMIT Internal Medicine; ATTEND Internal Medicine
PROC: 30233N1 Transfusion of Nonautologous Red Blood Cells into Peripheral Vein, Percutaneous Approach (ICD-10-PCS; 2016-10-01)
PROC: 0W3P8ZZ Control Bleeding in Gastrointestinal Tract, Via Natural or Artificial Opening Endoscopic (ICD-10-PCS; principal; 2016-10-01 10:55)
PROC: 0DB68ZX Excision of Stomach, Via Natural or Artificial Opening Endoscopic, Diagnostic (ICD-10-PCS; principal; 2016-10-01 10:55)
DX: K26.4 Chronic or unspecified duodenal ulcer with hemorrhage (principal); D62 Acute posthemorrhagic anemia; K28.9 Gastrojejunal ulcer, unspecified as acute or chronic, without hemorrhage or perforation; E03.9 Hypothyroidism, unspecified; D69.6 Thrombocytopenia, unspecified; I10 Essential (primary) hypertension; I25.10 Atherosclerotic heart disease of native coronary artery without angina pectoris; G47.33 Obstructive sleep apnea (adult) (pediatric); Z95.5 Presence of coronary angioplasty implant and graft; Z95.0 Presence of cardiac pacemaker; Z79.01 Long term (current) use of anticoagulants
CPT/HCPCS: 96365; G0378; J0171; J2405; J2704; P9016

== ENCOUNTER 2017-02-01 06:24 | Day surgery (SDC) | payer OTHER, MEDICARE ==
[2017-02-01 06:50] VITALS: PULSE 58
[2017-02-01] MEDS ORDERED: LR 1,000 ML IV ONE (07:01)
--- NOTE | 2017-02-01 07:46 | PDGENHP ---
History & Physical Chief Complaint: hx ulcer History of Present Illness: hx ulcer Pertinent Past, Social, Family History: reviewed Cardiorespiratory Assessment: normal rate. ctab
--- NOTE | 2017-02-01 08:13 | PDANEPAE ---
ANE History of Present Illness GI first of the year, surveliance ANE Past Medical History - Cardiovascular History Hx Hypertension: Yes Hx Arrhythmias: No Hx Chest Pain: No Hx Coronary Artery / Peripheral Vascular Disease: Yes Hx CHF / Valvular Disease: No Hx Palpitations: No Cardiovascular History Comment: STENT 08/2016AORTIC VALVE STENOSIS. MV REGURITATION - Pulmonary History Hx COPD: No Hx Asthma/Reactive Airway Disease: Yes Hx Recent Upper Respiratory Infection: No Hx Oxygen in Use at Home: No Hx Sleep Apnea: Yes Sleep Apnea Screening Result - Last Documented: Positive Pulmonary History Comment: ASTHMA TRIGGERS DUST. CHERIE C-PAP USES ONLY INTERMITTENTLY - Neurologic History Hx Cerebrovascular Accident: No Hx Seizures: No Hx Dementia: No - Endocrine History Hx Diabetes: No Endocrine History Comment: ON THYROID RX. GRAVES DX - Renal History Hx Renal Disorders: Yes Renal History Comment: CHRONIC KIDNEY DX - Liver History Hx Hepatic Disorders: No - Neurological & Psychiatric Hx Hx Neurological and Psychiatric Disorders: No - Cancer History Hx Cancer: No - Congenital Disorder History Hx Congenital Disorders: No - GI History Hx Gastrointestinal Disorders: Yes Gastrointestinal History Comment: UPPER GI BLEED 09/2016. PREV COLONOSCOPY WITH POLYP REMVL - Other Health History Other Health History: CHRONIC EDEMA. HAVING INJECTION IN CHANDANA KNEES FOR CHRONIC PAIN. SPINAL STENOSIS. ANEMIA - Chronic Pain History Chronic Pain: Yes (LOWER BACK) - Surgical History Prior Surgeries: EGD 09/2016. PACEMAKER 03/2014. LUMBAR LAMINECTOMY. CERVICAL FUSION. CHANDANA CATARACT. TONSILLECTOMY ANE Review of Systems Review of systems is: negative - Exercise capacity Exercise capacity: >=4 METS METS (RN): 4 METS - Pacemaker Pacemaker Insole Rasper: Medtronic Date Pacemaker Last Checked: 07/16/2015 ANE Patient History - Allergies Allergies/Adverse Reactions: oxycodone Allergy (Verified 09/30/16 16:09) oxycodone HCl [From Percocet] Allergy (Verified 09/30/16 16:09) - Home Medications Home Medications: Herbals/Supplements -Info Only 1 ea PO DAILY 02/17/14 [Last Taken 01/24/17] Multivitamins [Multivitamin (*)] 1 each PO HS 02/17/14 [Last Taken 01/24/17] Albuterol [Proventil Inhaler HFA (*)] 2 puffs IH Q6 PRN 07/13/16 [Last Taken 02/01 06:00] Azelastine HCl 1 spray EACHNARE BID 07/13/16 [Last Taken 02/01/17 05:00] Fluticasone/Salmeter 250/50Mcg [Advair 250/50 (*)] 1 puffs IH PRN 07/13/16 [ Last Taken 01/24/17] guanFACINE HCL [Guanfacine HCl ER] 1 mg PO HS 08/23/16 [Last Taken 01/31/17 19: 00] Ascorbic Acid [Vitamin C 500 mg (*)] 500 mg PO BID 09/30/16 [Last Taken 01/24/17 ] Furosemide [Lasix 40 MG (*)] 40 mg PO DAILY06 09/30/16 [Last Taken 01/31/17 07: 00] Lisinopril [Zestril 10 mg (*)] 10 mg PO DAILY06 09/30/16 [Last Taken 01/31/17 19 :00] Ondansetron HCl [Zofran] 8 mg PO Q8 PRN 09/30/16 [Last Taken 01/25/17] Potassium Cl [Klor-Con 20 meq (*)] 40 meq PO DAILY06 09/30/16 [Last Taken 19:00] Aspirin [Aspirin 81mg (*)] 81 mg PO DAILY06 01/26/17 [Last Taken 01/24/17] Atorvastatin Calcium [Lipitor 40 mg (*)] 40 mg PO DAILY06 01/26/17 [Last Taken 01/31/17 19:00] Clopidogrel Bisulfate [Plavix (*)] 75 mg PO DAILY06 01/26/17 [Last Taken 07:00] Methimazole [Tapazole 5MG (*)] 2.5 mg PO DAILY06 01/26/17 [Last Taken 02/01/17 05:00] Proair Hfa PRN 01/26/17 [Last Taken 02/01/17 05:00] Singulair HS 01/26/17 [Last Taken 01/31/17 19:00] - NPO status NPO Status: no food or drink >8 hours NPO Since - Liquids (Date): 01/31/17 NPO Since - Liquids (Time): 20:00 NPO Since - Solids (Date): 01/31/17 NPO Since - Solids (Time): 17:00 - Anes Hx Anes Hx: no prior problems - Smoking Hx Smoking Status: Never smoked ANE Labs/Vital Signs - Vital Signs Blood Pressure: 159/80 Heart Rate: 58 Respiratory Rate: 16 O2 Sat (%): 96 Height: 187.96 cm Weight: 97.522 kg ANE Physical Exam - Airway Mallampati Score: Class 2 - Pulmonary Pulmonary: no respiratory distress - Cardiovascular Cardiovascular: regular rate and rhythym - ASA Status ASA Status: III ANE Anesthesia Plan Anesthesia Plan: GA with mask
[2017-02-01] MEDS ORDERED: LIDOCAINE 2% 5 ML SDV ONE (08:15)
[2017-02-01] MEDS ORDERED: PROPOFOL/EMULSION 500 MG/50 ML BOTTLE IV ONE (08:16)
[2017-02-01] MEDS ORDERED: fentaNYL 100 MCG/2 ML INJ IVP PRN (08:27)
[2017-02-01] MEDS ORDERED: ACETAMINOPHEN 500 MG TAB PO PRN (08:27)
[2017-02-01] MEDS ORDERED: ONDANSETRON 4 MG/2 ML VIAL IVP PRN (08:27)
[2017-02-01] MEDS ORDERED: ALBUTEROL 3 ML DEYVIAL IH PRN (08:27)
[2017-02-01] MEDS ORDERED: NALOXONE HCL 0.4 MG/ML INJ IVP PRN (08:27)
[2017-02-01 08:52] VITALS: TEMP 97.5
[2017-02-01 09:51] VITALS: BP 148/68; RESP 22; O2SAT 98
--- NOTE | 2017-02-01 13:41 | POSTANESTH ---
Post Anesthetic Evaluation Cardiovascular Status: Normal, Stable Respiratory Status: Normal, Stable Level of Consciousness/Mental Status: Can Participate in Eval Pain Control: Adequate, Prn Tx Ordered Nausea/Vomiting Control: Adequate, Prn Tx Ordered Complications Possibly Related to Anesthesia: None Noted
--- NOTE | 2017-02-01 14:28 | GPN ---
[f rep st] PROCEDURE NOTE DATE OF PROCEDURE: 02/01/17 PROCEDURE: Esophagogastroduodenoscopy with biopsy. INDICATION: An 82-year-old male with history of gastric ulcers and duodenal ulcers with GI bleeding. This is a followup exam to assess for healing. CONSENT: Informed consent was obtained from the patient after an explanation of risks, benefits, and alternatives to the procedure. MEDICATIONS GIVEN: Propofol per Anesthesia. DESCRIPTION OF EXAM: After adequate sedation was achieved, the endoscope was advanced under direct vision through the oropharynx and as far as the 2nd portion of the duodenal. Retroflexion was performed in the stomach. Findings as below. COMPLICATIONS: None. ESTIMATED BLOOD LOSS: Minimal. FINDINGS: 1. Esophagus: A small 3 mm mucosal irregularity characterized by erythema in a circular flat area in the distal esophagus. This was removed with cold biopsy forceps and placed in a pathology jar for assessment. 2. Stomach: There was significant gastric erythema/gastritis with small areas of blood. No gastric ulcers were present on this exam, other than a 5 mm superficial erosion in the pyloric channel. Biopsies were taken from throughout the antrum, body, and pylorus to assess for H pylori. 3. Duodenum: Multiple small superficial ulcers were seen in the proximal duodenum/bulb. The 2nd portion of the duodenum was normal. IMPRESSION: Small esophageal mucosal abnormality which was biopsied, along with significant gastritis and small duodenal ulcerations. This may represent Helicobacter pylori infection. RECOMMENDATIONS: 1. Await biopsy results. 2. Resume aspirin and Plavix tomorrow. 3. Given the use of aspirin and Plavix, history of ulcers, and ongoing gastritis, recommend omeprazole 40 mg daily lifelong. 4. Resume other regular medications today. 5. Resume regular diet today. 6. I do not think repeat endoscopy is necessary if biopsies are all benign unless patient develops symptoms or other concerning findings. /[id number]/MODL MTDD
== END 2017-02-01 09:50 | disposition home or self-care (01) ==
LOC: FSGY 06:24
PROVIDERS: ATTEND Internal Medicine
PROC: 0DB68ZX Excision of Stomach, Via Natural or Artificial Opening Endoscopic, Diagnostic (ICD-10-PCS; principal; 2017-02-01 08:15)
PROC: 0DB58ZX Excision of Esophagus, Via Natural or Artificial Opening Endoscopic, Diagnostic (ICD-10-PCS; principal; 2017-02-01 08:15)
DX: K29.70 Gastritis, unspecified, without bleeding (principal); J45.998 Other asthma; I12.9 Hypertensive chronic kidney disease with stage 1 through stage 4 chronic kidney disease, or unspecified chronic kidney disease; E87.70 Fluid overload, unspecified; N18.3 Chronic kidney disease, stage 3 (moderate); D64.9 Anemia, unspecified; I50.9 Heart failure, unspecified
CPT/HCPCS: J2704

== ENCOUNTER → 2018-07-22 | Outpatient (CLI) | payer OTHER, MEDICARE | LOC: BHLMT 09:30 | PROVIDERS: ATTEND Internal Medicine Cardiovascular Disease | DX: I44.1 Atrioventricular block, second degree (principal); I35.0 Nonrheumatic aortic (valve) stenosis; I27.20 Pulmonary hypertension, unspecified; I25.10 Atherosclerotic heart disease of native coronary artery without angina pectoris; I10 Essential (primary) hypertension; G47.30 Sleep apnea, unspecified; Z95.5 Presence of coronary angioplasty implant and graft; Z95.0 Presence of cardiac pacemaker | CPT/HCPCS: 93005-PO ==

== ENCOUNTER → 2018-08-05 | Outpatient (CLI) | payer OTHER, MEDICARE | LOC: BHFA 15:30 | PROVIDERS: ATTEND Internal Medicine Cardiovascular Disease | DX: I35.0 Nonrheumatic aortic (valve) stenosis (principal); I71.9 Aortic aneurysm of unspecified site, without rupture ==